=== PATIENT | female | born 1990 | race Caucasian/White ===

== ENCOUNTER → 2024-04-05 11:15 | Outpatient (AMB) | payer OTHER, SELFPAY ==
--- NOTE | 2024-04-05 09:41 | A.OFFPC_ITS ---
Vital Signs 04/05/24 11:38 04/05/24 11:49 Height 5 ft 5.35 in Weight 191 lb BMI 31.4 BP 154/96 H 152/84 H Blood Pressure Location Rt brachial Rt brachial Position Sitting Sitting Pulse 72 Pulse Source Pulse Oximeter Pulse Oximetry (%) 98 Oxygen Delivery Method Room Air Intake Visit Reasons: TC from [facility] Intake Note: New patient visit Executive Staff Assistant Required: No Allergies No Known Allergies Allergy (Verified 04/05/24 11:35) Tobacco use date assessed: 04/05/24 Dental Screening Dental Screen Date: 04/05/24 Did you have a dental visit in the last 12 months?: No Did you have a dental problem in the last 6 months where you did not have access to dental care?: No Was dental information given to patient?: Patient has dentist HPI HPI Comments History of Present Illness Details The patient is a 33 year old female with a past medical history of anxiety, depression, seizures, asthma presenting for physical exam Was referred to at last visit in July. Was feeling depressed, manic at the time. Doing better but still high levels of anxiety. BP is high today. Has done well with lexapro in the past but after a few months doesnt seem to work as well. would like to try again Migraines have increased in frequency and severity. Often waking up with them. She is snoring She has been having almost daily GERD for the past month. Has been taking TUMs with little relief Asthma: on albuterol as needed. ROS see HPI PHYSICAL EXAM: GENERAL: Alert and oriented x 3. NAD EYES: EOMI. Anicteric. HENT: Moist mucous membranes. No scleral icterus. No cervical lymphadenopathy. LUNGS: Clear to auscultation bilaterally. CARDIOVASCULAR: Regular rate and rhythm. No murmur. No JVD. ABDOMEN: Soft, non-tender +bs EXTREMITIES: No edema. Non-tender. SKIN: No rashes or lesions. Warm. NEUROLOGIC: No focal neurological deficits. CN II-XII grossly intact PSYCHIATRIC: Cooperative. Appropriate mood and affect PENDING SALE TO [facility] Family History (Updated 04/05/24 @ 11:42 by Ludmila Steele CMA) Mother Heart murmur after rheumatic heart disease HTN (hypertension) Father Anxiety Depression HTN (hypertension) Other FH: mental illness PTSD (post-traumatic stress disorder) Social History Housing: House Patient Tobacco Use Status: Former Tobacco user Cigarette Packs Per Day: 1 Years Smoked: 10 e-Cigarette/Vaping Use: Currently Using service: No Current occupational status: employed and unemployed Cognitive needs: No Hearing needs: No Vision needs: No Questionnaire AUDIT C Alcohol Use Questionnaire (AUDIT-C) 1. How often do you have a drink containing alcohol?: Monthly or less 2. How many drinks containing alcohol do you have on a typical day when you are drinking?: 1 or 2 3. How often do you have six or more drinks on one occasion?: Never Total Score: 1 Physical exam (Primary Care) Vital Signs: Last Vital Signs Pulse 72 04/05/24 11:38 BP 154/96 H 04/05/24 11:38 Pulse Ox 98 04/05/24 11:38 Oxygen Delivery Method Room Air 04/05/24 11:38 BMI result Body Mass Index 31.4 Coding Level of Care Code Est Pt Level 4 (04624) Diagnoses Snoring R06.83 Migraine without status migrainosus, not intractable, unspecified migraine type G43.909 Migraine type: unspecified Status migrainosus presence: without status migrainosus Intractability: not intractable Anxiety F41.9 Assessment & Plan Assessment & Plan (1) Snoring: Code(s): R06.83 - Snoring Category: Medical Plan: AM headaches, snoring, apnea-sleep testing ordered (2) Migraines: Code(s): G43.909 - Migraine, unspecified, not intractable, without status migrainosus Category: Medical Qualifiers: Migraine type: unspecified Status migrainosus presence: without status migrainosus Intractability: not intractable Qualified Code(s): G43.909 - Migraine, unspecified, not intractable, without status migrainosus Plan: trial imitrex. sleep testing ordered (3) Anxiety: Code(s): F41.9 - Anxiety disorder, unspecified Category: Medical Plan: Restart lexapro. follow up 5-6 weeks Orders: Orders RT home sleep study Today R06.81 - Apnea, not elsewhere classified, R06.83 - Snoring Medications: New sumatriptan succinate (Imitrex) take 1 tab at onset of headache; if no relief may repeat 1 tab after at least 2 hrs; max = 4 tabs/24 hr PO 30 tabs 0RF escitalopram oxalate Take 1/2 tab oral once daily for 2 weeks then increase to one tablet oral once daily 20 mg PO DAILY 90 tabs 3RF pantoprazole 20 mg PO DAILY 90 tabs 3RF
[2024-04-05 11:38] VITALS: BP 154/96; PULSE 72; O2SAT 98; BMI 31.4
[2024-04-05 11:49] VITALS: BP 152/84
== END ==
PROVIDERS: PCP Internal Medicine; Visit Provider Internal Medicine
DX: R06.83 Snoring (principal); G43.909 Migraine, unspecified, not intractable, without status migrainosus; F41.9 Anxiety disorder, unspecified

== ENCOUNTER 2024-07-08 16:15 | Outpatient (AMB) | payer OTHER, SELFPAY ==
--- NOTE | 2024-07-08 16:07 | MHC.PC.OV ---
Intake Visit Reasons: follow up meds Intake Note: Follow up medication. Production Designer Required: No Allergies No Known Allergies Allergy (Verified 07/08/24 16:07) Tobacco use date assessed: 07/08/24 Dental Screening Dental Screen Date: 04/05/24 HPI HPI Comments History of Present Illness Details The patient is a 33 year old female with a past medical history of anxiety, depression, seizures, asthma presenting for follow up Anxiety: Is doing much better back on lexapro. She would like to slightly increase the dose. She also infrequently has overwhelming anxiety. Was referred to at last visit in July. Was feeling depressed, manic at the time. Doing better but still high levels of anxiety. BP is high today. Has done well with lexapro in the past but after a few months doesnt seem to work as well. would like to try again Migraines have lessened since starting back on ssri She has been having almost daily GERD for the past month. Has been taking TUMs with little relief Asthma: on albuterol as needed. ROS see HPI PHYSICAL EXAM: Telehealth [facility] Family History Mother Heart murmur after rheumatic heart disease HTN (hypertension) Father Anxiety Depression HTN (hypertension) Other FH: mental illness PTSD (post-traumatic stress disorder) Social History Housing: House Alcohol intake: current Patient Tobacco Use Status: Current everyday Tobacco user Cigarette Packs Per Day: 0.5 Years Smoked: 10 e-Cigarette/Vaping Use: Currently Using Substance Use Type: Marijuana service: No Current occupational status: employed and unemployed Cognitive needs: No Hearing needs: No Vision needs: No Physical exam (Primary Care) Tobacco/Smoking Status: Tobacco use Status Tobacco use date assessed 07/08/24 07/08/24 16:10 Patient Tobacco Use Status Current everyday Tobacco 07/08/24 16:10 e-Cigarette/Vaping Use Currently Using 07/08/24 16:10 Coding Level of Care Code Est Pt Level 4 (47339) Diagnoses Anxiety F41.9 Assessment & Plan Assessment & Plan (1) Anxiety: Code(s): F41.9 - Anxiety disorder, unspecified Category: Medical Plan: Increase lexapro to 30mg daily Start sparing lorazepam prn Medications: New escitalopram oxalate 30 mg (1.5 x 20 mg) PO DAILY 135 tabs 3RF lorazepam 1 mg PO BID PRN 30 tabs 2RF anxiety
== END 2024-07-08 17:05 ==
LOC: HO.HMCFM 16:15
PROVIDERS: PCP Internal Medicine; Visit Provider Internal Medicine
DX: F41.9 Anxiety disorder, unspecified (principal)

== ENCOUNTER 2025-01-23 09:13 | Outpatient (AMB) | payer OTHER, SELFPAY ==
[2025-01-23 09:20] VITALS: BP 134/86; PULSE 87; RESP 14; TEMP 36.9; O2SAT 98; BMI 33.5
--- NOTE | 2025-01-23 09:20 | A.OFFPC_ITS ---
Vital Signs 01/23/25 09:20 Height 5 ft 5.35 in Weight 203 lb 6 oz BMI 33.5 BP 134/86 Blood Pressure Location Rt brachial Position Sitting Respiration 14 Pulse 87 Pulse Source Pulse Oximeter Temp 98.4 F Temp Source Oral Pulse Oximetry (%) 98 Oxygen Delivery Method Room Air Intake Visit Reasons: CPE Intake Note: Physical Allergies No Known Allergies Allergy (Verified 01/23/25 09:23) Tobacco use date assessed: 01/23/25 Dental Screening Dental Screen Date: 01/23/25 Did you have a dental visit in the last 12 months?: No Did you have a dental problem in the last 6 months where you did not have access to dental care?: No Was dental information given to patient?: Patient has dentist HPI HPI Comments History of Present Illness Details The patient is a 34 year old female with a past medical history of anxiety, depression, seizures, asthma presenting for follow up Anxiety: stable on lexapro, still with some breakthrough anxiety. Lorazepam too sedating Was referred to at last visit in July. Was feeling depressed, manic at the time. Doing better but still high levels of anxiety. BP is high today. Has done well with lexapro in the past but after a few months doesnt seem to work as well. would like to try again Migraines have lessened since starting back on SSRI. She has had dental issues since childhood. She has had recurring right low deann. She needs a new OMF referral. Patient notes that she has had recurrent palpitations, lightheadedness. She notes intermittent bradycardia. Tells me she has been on a heart monitor in the past. GERD: stable on PPI Asthma: on albuterol as needed. Left wrist pain, bump on the wrist. worsening over time. No redness or warmth. 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 NAD EYES: EOMI. Anicteric. HENT: Moist mucous membranes. No scleral icterus. No cervical lymphadenopathy. LUNGS: Clear to auscultation bilaterally. CARDIOVASCULAR: Regular rate and rhythm. No murmur. No JVD. ABDOMEN: Soft, non-tender +bs EXTREMITIES: No edema. Non-tender. SKIN: No rashes or lesions. Warm. NEUROLOGIC: No focal neurological deficits. CN II-XII grossly intact PSYCHIATRIC: Cooperative. Appropriate mood and affect PFSH Family History Mother Heart murmur after rheumatic heart disease HTN (hypertension) Father Anxiety Depression HTN (hypertension) Other FH: mental illness PTSD (post-traumatic stress disorder) Social History Housing: House Alcohol intake: current Patient Tobacco Use Status: Current everyday Tobacco user Cigarette Packs Per Day: 0.5 Years Smoked: 10 e-Cigarette/Vaping Use: Currently Using Substance Use Type: Marijuana service: No Current occupational status: unemployed Cognitive needs: No Hearing needs: No Vision needs: No Questionnaire PHQ-9 Over the last 2 weeks, how often have you been bothered by any of the following problems? 1. Little interest or pleasure in doing things: not at all 2. Feeling down, depressed, or hopeless: not at all 3. Trouble falling or staying asleep, or sleeping too much: nearly every day 4. Feeling tired or having little energy: nearly every day 5. Poor appetite or overeating: more than half the days 6. Feeling bad about yourself - or that you are a failure or have let yourself or your family down: not at all 7. Trouble concentrating on things, such as reading the newspaper or watching television: not at all 8. Moving or speaking so slowly that other people could have noticed. Or the opposite - being so fidgety or restless that you have been moving around a lot more than usual: not at all 9. Thoughts that you would be better off or of hurting yourself in some way: not at all Total score: 8 Depression Screening Interpretation: Positive Depression Screening Follow-up: Existing condition Depression Screening Done: Yes 50239 - PHQ-9 Billing: Yes Source: Developed by Drs. Leroy Gonzalez, Jolly Irizarry, Demetri Alvarez and colleagues, with an educational cristopher from [employer]. Thrive Questionnaire Date Thrive assessed: 01/23/25 I am a: Patient What is your living situation today?: I have a steady place to live Within the past 12 months, did the food you bought not last and you didn't have the money to get more?: Never true Within the past 12 months, did you worry whether your food would run out before you got money to buy more?: Never true Do you have trouble paying for medicines?: No Do you have trouble getting transportation to medical appointments?: No Do you have trouble paying your heating and electricity bill?: No Do you have trouble taking care of your child, family member or friend?: No Do you have trouble with day-to-day activities such as bathing, preparing meals, shopping, managing finances, etc.?: No Are you currently unemployed and looking for a job?: No Are you interested in more education?: No Please select the resources that you would like help with: None Currently or been in a relationship where the following occur: I choose not to answer THRIVE Score: 0 AUDIT C Alcohol Use Questionnaire (AUDIT-C) 1. How often do you have a drink containing alcohol?: Monthly or less 2. How many drinks containing alcohol do you have on a typical day when you are drinking?: 1 or 2 3. How often do you have six or more drinks on one occasion?: Never Total Score: 1 RYAN-7 AMB Questionnaire RYAN-7 Date RYAN - 7 assessed: 01/23/25 Feeling nervous, anxious, or on edge: 3 = Nearly every day Not being able to stop or control worryin = Nearly every day Worrying too much about different things: 3 = Nearly every day Trouble relaxin = Several days Being so restless that it is hard to sit still: 1 = Several days Becoming easily annoyed or irritable: 3 = Nearly every day Feeling afraid as if something awful might happen: 1 = Several days Total RYAN-7 score (0-4 normal; 5-9 mild; 10-14 moderate; 15-21 severe): 15 Source: Developed by Drs. Leroy Gonzalez, Jolly Irizarry, Demetri Alvarez and colleagues, with an educational cristopher from [employer]. RYAN-7 Assessment Billing RYAN-7 Assessment Tool: RYAN-7 Assessment 30053 Physical exam (Primary Care) Vital Signs: Last Vital Signs Temp 98.4 F 01/23/25 09:20 Pulse 87 01/23/25 09:20 Resp 14 01/23/25 09:20 BP 134/86 01/23/25 09:20 Pulse Ox 98 09/22/25 09:20 Oxygen Delivery Method Room Air 01/23/25 09:20 BMI result Body Mass Index 33.5 Tobacco/Smoking Status: Tobacco use Status Tobacco use date assessed 01/23/25 01/23/25 09:29 Patient Tobacco Use Status Current everyday Tobacco 01/23/25 09:22 e-Cigarette/Vaping Use Currently Using 01/23/25 09:22 PHQ-9: PHQ-9 Score PHQ-9: Total score 8 01/23/25 11:01 Depression Screening Interpretation: Positive Depression Screening Follow-up: Existing condition Thrive Assessment: Date of Thrive Assessment Date Thrive assessed 01/23/25 01/23/25 11:01 Currently or been in a relationship where the following occur: I choose not to answer Coding Level of Care Code Est Pt Prev Care 18-39y(44129) Diagnoses Physical exam Z00.00 Dislocation of temporomandibular joint, subsequent encounter S03.00XD Encounter type: subsequent encounter Bradycardia R00.1 Anxiety F41.9 Additional Codes RYAN-7 Assessment Billing - RYAN-7 Assessment Tool: RYAN-7 Assessment 82331 ([id number]) PHQ-9 - 02567 - PHQ-9 Billing: Yes ([id number]) Assessment & Plan Assessment & Plan (1) Physical exam: Code(s): Z00.00 - Encounter for general adult medical examination without abnormal findings (2) TMJ (dislocation of temporomandibular joint): Code(s): S03.00XA - Dislocation of jaw, unspecified side, initial encounter Category: Medical Qualifiers: Encounter type: subsequent encounter Qualified Code(s): S03.00XD - Dislocation of jaw, unspecified side, subsequent encounter (3) Bradycardia: Code(s): R00.1 - Bradycardia, unspecified Category: Medical (4) Anxiety: Code(s): F41.9 - Anxiety disorder, unspecified Category: Medical Plan 34 year old for CPE Interval history reviewed preventive measures for age discussed declines flu Wrist pain-xr ordered. referral hand Palpitations, bradycardia-referral to cardiology TMJ, lock jaw-referral to OMF placed Labs ordered Orders: Orders Comprehensive Met. Panel Today F41.9 - Anxiety disorder, unspecified, G43.909 - Migraine, unspecified, not intractable, without status migrainosus, R06.81 - Apnea, not elsewhere classified, R06.83 - Snoring XR wrist LT min 3V Today M25.532 - Pain in left wrist Lyme IgG/IgM w/reflex to WB Today R00.1 - Bradycardia, unspecified Complete Blood Count Auto Diff Today F41.9 - Anxiety disorder, unspecified, G43.909 - Migraine, unspecified, not intractable, without status migrainosus, R06.81 - Apnea, not elsewhere classified, R06.83 - Snoring Lipid Panel Today F41.9 - Anxiety disorder, unspecified, G43.909 - Migraine, unspecified, not intractable, without status migrainosus, R06.81 - Apnea, not elsewhere classified, R06.83 - Snoring TSH reflex Free T4 Today F41.9 - Anxiety disorder, unspecified, G43.909 - Migraine, unspecified, not intractable, without status migrainosus, R06.81 - Apnea, not elsewhere classified, R06.83 - Snoring Vitamin B12 and Folate Today F41.9 - Anxiety disorder, unspecified, G43.909 - Migraine, unspecified, not intractable, without status migrainosus, R06.81 - Apnea, not elsewhere classified, R06.83 - Snoring Referrals Cardiology Referral R00.1 - Bradycardia, unspecified, R42 - Dizziness and giddiness Oral Surgery Referal S03.00XA - Dislocation of jaw, unspecified side, initial encounter Hand Surgery Referral M25.532 - Pain in left wrist Medications: New buspirone 10 mg PO TID 90 tabs 3RF
--- OUTSIDE RECORDS SUMMARY | 2025-01-23 10:49 | XMS_ITS ---
Author Name [facility] Organization Unknown Care Team Organization Name Specialty Phone Email Start Date End Da te [facility] Termed, [facility] Primary Care 03/11/202212/02
== END 2025-01-23 09:53 | disposition home or self-care (01) ==
LOC: HO.HMCFM 09:14
PROVIDERS: PCP Internal Medicine; Visit Provider Internal Medicine
DX: Z00.00 Encounter for general adult medical examination without abnormal findings (principal); S03.00XD Dislocation of jaw, unspecified side, subsequent encounter; R00.1 Bradycardia, unspecified; F41.9 Anxiety disorder, unspecified

== ENCOUNTER → 2025-01-23 09:13 | Outpatient (BNVA) | payer OTHER, SELFPAY | PROVIDERS: PCP Internal Medicine; Visit Provider Internal Medicine | DX: Z00.00 Encounter for general adult medical examination without abnormal findings (principal); S03.00XD Dislocation of jaw, unspecified side, subsequent encounter; R00.1 Bradycardia, unspecified; F41.9 Anxiety disorder, unspecified; K21.9 Gastro-esophageal reflux disease without esophagitis; J45.909 Unspecified asthma, uncomplicated; M25.532 Pain in left wrist; G43.909 Migraine, unspecified, not intractable, without status migrainosus; Z79.899 Other long term (current) drug therapy; Z13.31 Encounter for screening for depression; Z13.39 Encounter for screening examination for other mental health and behavioral disorders | CPT/HCPCS: 96127 ==

== ENCOUNTER 2025-01-30 09:13 | Outpatient (REF) | payer OTHER, SELFPAY ==
[2025-01-30 11:25] LABS: MANUAL DIFF FLAG NO
[2025-01-30 11:32] LABS: Hematocrit 38.5 % (37.0-47.0); Hemoglobin 13.4 g/dl (12.0-16.0); Imm Gran Abs Auto 0.03 X10*3/uL (0.00-0.03); Imm Gran Pct Auto 0.4 % (0.0-0.4); Lymphocytes Absolute Auto 1.4 X10*3/uL (1.2-4.9); Mean Corpuscular HGB Conc 34.8 g/dl (31.0-35.0); Mean Corpuscular Hemoglobin 30.8 pg (27.0-33.0); Mean Corpuscular Volume 88.5 fL (80.0-98.0); NRBC Abs Auto 0.000 X10*3/uL (0.0-0.012); NRBC Pct Auto 0.0 /100WBC (0.0-0.2); Platelet Count 283 X10*3/uL (160-400); Red Blood Count 4.35 X10*6/uL (4.20-5.50); White Blood Count 6.8 X10*3/uL (4.8-10.8)
[2025-01-30 12:07] LABS: Alanine Aminotransferase 21 U/L (0-31); Albumin Level 4.4 g/dL (3.5-5.0); Alkaline Phosphatase 72 U/L (39-117); Anion Gap 9 (12-20); Aspartate Amino Transferase 21 U/L (5-31); Blood Urea Nitrogen 10 mg/dL (9-16); Calcium 9.0 mg/dL (8.4-10.2); Carbon Dioxide 24 mmol/L (22-29); Chloride 112 mmol/L (96-108); Cholesterol 190 mg/dL (<200); Estimated Glomerular Filt Rate > 60; HDL Cholesterol 38 mg/dL (>40); Potassium 3.9 mmol/L (3.3-5.1); Sodium 141 mmol/L (135-145); Total Protein 7.0 g/dL (6.5-8.0); Triglycerides 59 mg/dL (<150)
[2025-01-30 12:15] LABS: Folate 4.6 ng/mL (> or = 4.0); Vitamin B12 196 pg/mL (200-900)
[2025-01-31 08:59] LABS: Lyme Abs Screen <0.90 index
== END 2025-01-30 09:14 | disposition home or self-care (01) ==
LOC: HO.WFDLDS 09:13
PROVIDERS: Visit Provider Internal Medicine
DX: R06.83 Snoring (principal); G43.909 Migraine, unspecified, not intractable, without status migrainosus; R00.1 Bradycardia, unspecified; F41.9 Anxiety disorder, unspecified; R06.81 Apnea, not elsewhere classified; Z01.84 Encounter for antibody response examination; Z13.6 Encounter for screening for cardiovascular disorders
CPT/HCPCS: 36415; 80053; 80061; 82607; 82746; 84443; 85025; 86617; 86618

== ENCOUNTER 2025-02-06 08:09 | Outpatient (REF) | payer OTHER, SELFPAY ==
[2025-02-28 23:28] LABS: Estradiol Ultra Sensitive 21 pg/mL
== END 2025-02-06 08:10 | disposition home or self-care (01) ==
LOC: HO.WFDLDS 08:09
PROVIDERS: Visit Provider Internal Medicine
DX: N92.6 Irregular menstruation, unspecified (principal)
CPT/HCPCS: 36415; 82670; 83002; 84403

== ENCOUNTER 2025-02-15 10:26 | Emergency (ER) | payer OTHER, SELFPAY ==
--- OUTSIDE RECORDS SUMMARY | 2025-02-12 18:58 | XMS_ITS | Encounter Summary ---
Author Organization [facility] Address [address] [place] [phone] Phone Care Team Providers Care Equipment Sales Specialist Name Role Phone Belinda Villa MD Primary Care Provider + [phone] Reason for Visit * Reason Comments Chest Pain Encounter Details Date Type Department Care Team (Late st Contact Info) Description 02/12/2025 6:58 PM EDT - 02/12/2025 9:10 PM EDT Emergency [facility] [address] [place] [address] Discharge Disposition: Home or Self Care Social History Tobacco Use Types Packs/Day Years Used Date Smoking Tobacco: Every Day Cigarettes Passive Smoke Exposure: Never Alcohol Use Standard Drinks/Week Comments Never 0 (1 standard drink = 0.6 oz pur e alcohol) Education Answer Date Recorded Are you interested in more education? Not on tj e 02/12/2025 Are you concerned about learning? Not on file 02/12/2025 No 02/12/2025 No 02/12/2025 Digital Access Answer Date Recorded No 02/12/2025 No 02/12/2025 Reliable internet access at home? Not on file 02/12/2025 Device with a working camera? Not on file Intimate Partner Violence Answer Date R ecorded Are you denied basic needs s uch as food, clothing, or medical care? No 02/12/2025 In the past 12 months have y ou been in a relationship with a person who hurts, threatens, or tries to control you? No 02/12/2025 Are you denied basic needs s uch as food, clothing, or medical care? No 02/12/2025 In the past 12 months have y ou been in a relationship with a person who hurts, threatens, or tries to control you? No 02/12/2025 Comments No Sex and Gender Information Value Date Recorded Sex Assigned at Not on file Legal Sex Female 6:19 PM EDT Gender Identity Not on file Sexual Orientation Not on file documented as of this encounter Last Filed Vital Signs Vital Sign Reading Time Taken Comments Blood Pressure 134/82 02/12/2025 9:00 PM EDT Pulse 59 02/12/2025 9:00 PM EDT Temperature 37.3 C (99.1 F) 02/12/2025 9:00 PM EDT Respiratory Rate 18 02/12/2025 9:00 PM EDT Oxygen Saturation 99% 02/12/2025 9:00 PM EDT Inhaled Oxygen Concentration - - Weight 83 kg (183 lb) 02/12/2025 6:24 PM EDT Height 160 cm (5' 3 ) 02/12/2025 6:24 PM EDT Body Mass Index 32.42 02/12/2025 6:24 PM EDT documented in this encounter Functional Status * Calculated C-SSRS Risk Score (Lifetime/Recent) Answer Date of Assessment Author No Risk Indicated 02/12/2025 6:27 PM EDT Jennifer Roberson RN * [place] Suicide Severity Rating Scale (Screener/Recent Self-Report) Question Answer Date of Assessment Author 1. Wish to be (Past 1 Month) No 02/12/2025 6:27 PM EDT Jerri Saul RN 2. Non-Specific Active Suicidal Thoughts (Past 1 Month) No 02/12/2025 6:27 PM EDT Jerri Saul RN 6. Suicidal Behavior (Lifetime) No 02/12/2025 6:27 PM EDT Jerri Saul RN documented as of this encounter Discharge Instructions * Discharge Instructions* Alem Wong PA-C - 02/12/2025 9:00 PM EDT Your laboratory results today were all reassuring without signs of infection or metabolic derangement. Your troponin, an enzyme that evaluates heart function was within normal limits. Your EKG and chest x-ray showed no acute abnormalities. You were given referral to complete ultrasound of the rightupper quadrant/gallbladder. It is scheduled for 11 AM on 02/13/2025. Please, arrive 15 minutes prior to your appointment to the main entrance of [facility] and you will be referred to the ultrasound suite. Will notify you and your primary care doctor about the results. Follow-up with your primary care doctor for observation and further management. Return to the emergency department for any new or concerning symptoms * Attachments The following attachments cannot be sent through Care Everywhere. * Chest Pain (Setswana) documented in this encounter Procedure Notes * Alem Wong PA-C - 02/12/2025 8:23 PM EDTAssociated Order(s): Bedside Ultrasound Procedure Bedside Ultrasound Date/Time: 02/12/2025 8:24 PM Performed by: Alem Wong PA-C Authorized by: Alem Wong PA-C Exam Type: Biliary Biliary Exam Findings & Impression: Indications: patient with epigastric pain Gallstones: the gallbladder could not be well visualized and therefore the presence of gallstones could not be determined Gallbladder Wall Thickening: the gallbladder wall thickness could not be well visualized and therefore the thickness could not be assessed Pericholecystic Fluid Present: the gallbladder could not be visualized and therefore the presence of pericholecystic fluid could not be determined Sonographic Rao: the gallbladder could not be well visualized and therefore the presence or absence of a Sonographic Rao's sign could not be determined Overal Impression: indeterminate Images: Images Saved: Yes Accession Number: [id number] Cosigned by Ulises Martin DO at 02/13/2025 3:53 AM EDT Associated attestation - Ulises Martin DO - 02/13/2025 3:53 AM EDT Ulises Gallegos DO, the Attending Physician was available and supervising the care of this patient. documented in this encounter ED Notes * Varghese De Leon RN - 02/12/2025 9:09 PM EDT ED Nursing Progress Note Pt medically cleared and prepared for discharge after evaluation and treatment by ED provider. Patient has been provided with paper instructions in addition to verbal discharge instructions, pt verbalized understanding. Patient has been educated on home management, follow up, and when to return to the ED. Pt A&O x4, ambulatory with a steady gait. Pt denies any new or worsening medical complain ts. Pt has safe ride home. All belongings with patient, all safety maintained. Patient is in no acute distress at time of discharge. * Varghese De Leon RN - 02/12/2025 7:36 PM EDT ED Nursing Progress Note Pt to ED for eval of substernal chest pain beginning at 1600. Pt reports driving and CP came on suddenly and radiated down left arm. Pt reports dizziness room is spinning and SOB worse with ambulation. 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 Pt alert and calm, CAOx4,skin PWD, speaking in full sentences answering questions appropriately, respirations even and unlabored, managing airway/secretions. * Jennifer Saul RN - 02/12/2025 6:22 PM EDT Patient BIBA from the side of the road after experiencing sudden onset of substernal chest pain. She was driving when she felt sharp chest pain that radiated her left arm. Dry cough noted during triage. Patient also reporting feeling short of breath. She has an appointment with cardiology in March for ongoing chest pain and bradycardia. Patient received 324 of ASA en route. Patient reports some improvement of chest pain. EKG done in triage. * Alem Wong PA-C - 02/12/2025 6:19 PM EDT Chief Complaint Chief Complaint Patient presents with Chest Pain History of Present Illness The patient, Sindhu Leung,is a 34 y.o. female who presents for evaluation of Chest Pain History of Present Illness This is a 34-year-old female with a history of bradycardia presenting with chest pain, dizziness, and nausea. The patient reports experiencing significant chest pain, described as a squeezing sensation, which began a few days ago. The pain intensifies with inhalation and slightly eases when pressure is applied to the chest. She also mentions difficulty in taking full breaths. She has been feeling dizzy forthe past few days, with the chest pain exacerbating this symptom. The dizziness is described as a spinning sensation rather than tunnel vision. Prior to [place] a mall where she felt extremely dizzy and hot, accompanied by severe chest pain that worsened with each breath. The pain was somewhat alleviated by applying pressure to her chest, but it continued to intensify. She experienced significa nt nausea during this episode. She reports that episodes started after she ate a meal. She rates her current pain level as 2 out of 10, describing it as more of a discomfort than actual pain. She hasno history of abdominal surgeries. She has an upcoming appointment with her primary care physician in 03/2025 for a heart monitor. Sheexpresses concern about the possibility of a heart attack tonight. She describes a fluttering sensation in her chest and a perceived drop in her heart rate. A previous hospital visit revealed bradycardia on the monitor. Unless otherwise specified, I have reviewed and agree with the triage and nursing notes. ROS A ten point review of systems was negative except what was noted in the HPI. Review of Systems Past Medical History Past Medical History: Diagnosis Date Migraine Past Surgical History No past surgical history on file. Home Medications Prior to Admission medications Not on File Allergies No Known Allergies Social and Family History Social History Tobacco Use Smoking status: Every Day Current packs/day: 0.25 Types: Cigarettes Passive exposure: Never Smokeless tobacco: Not on file Substance Use Topics Alcohol use: Never Social History Substance and Sexual Activity Drug Use Yes Types: Marijuana No family history on file. Physical Exam Vital Signs: ED Triage Vitals [02/12/25 9464] Encounter Vitals Group BP (!) 142/80 Systolic BP Percentile Diastolic BP Percentile Heart Rate 76 Respiratory Rate 18 Temperature 37.8 ??C (100 ??F) Temp Source Temporal SpO2 99 % Weight 183 lb Height 5' 3 Head Circumference Peak Flow Pain Score Pain Loc Pain Education Exclude from Growth Chart Physical Exam GENERAL APPEARANCE: AxOx3, appears generally well, not ill or toxic appearing, no acute distress. HEENT: Head is normocephalic and atraumatic, mucous membranes are moist without lesions NECK: Supple without lymphadenopathy. No stiffness or restricted ROM. CARDIOVASCULAR: Normal rate and regular rhythm, normal S1/S2, no murmurs, rubs or gallops PULMONARY: Lung sounds are clear to auscultation bilaterally, moving air well. ABDOMEN: Soft, nondistended with good bowel sounds heard. Mild tenderness to palpation over the right upper quadrant and epigastric area. No rebound or guarding. No peritoneal signs. Negative Rao sign. No CVA tenderness MUSCULOSKELETAL: normal ROM of all major extremities; no obvious deformities or signs of injury. Lower extremities without cyanosis, clubbing or edema. NEUROLOGICAL: No focal deficits; CN 2-12 not formally tested but appear grossly intact. Observed toambulate with normal gait. SKIN: Warm and dry without any rash. Laboratory Testing Results for orders placed or performed during the hospital encounter of 02/12/25 LFTs (hepatic panel) Result Value Ref Range ALKALINE PHOSPHATASE 83 39 - 117 U/L TOTAL BILIRUBIN 0.8 0.0 - 1.2 mg/dL DIRECT BILIRUBIN 0.2 0.0 - 0.2 mg/dL Bilirubin (Indirect) 0.6 0 - 1.5 mg/dL AST 13 0 - 37 U/L ALT 17 0 - 40 U/L TOTAL PROTEIN 7.1 6.5 - 8.0 g/dL ALBUMIN 4.3 3.9 - 4.8 g/dL GLOBULIN 2.8 1 - 4.8 g/dL A/G Ratio 1.54 1.00 - 4.80 RATIO Lipase Result Value Ref Range LIPASE 44 16 - 63 U/L Troponin Specimen: Blood Result Value Ref Range Troponin-T, HS Gen5 <6 0 - 9 ng/L Troponin Specimen: Blood Result Value Ref Range Troponin-T, HS Gen5 <6 0 - 9 ng/L Basic metabolic panel Specimen: Blood Result Value Ref Range SODIUM 141 133 - 146 mmol/L CHLORIDE 107 96 - 108 mmol/L POTASSIUM 3.4 3.3 - 5.1 mmol/L CO2 23 21 - 35 mmol/L BUN 10 6 - 19 mg/dL CREATININE 0.70 0.5 - 1.5 mg/dL GLUCOSE 78 70 - 99 mg/dL CALCIUM 9.4 8.4 - 10.3 mg/dL EGFR 118 >59 mL/min/1.73m2 ANION GAP 14 10 - 20 mmol/L CBC and differential Specimen: Blood Result Value Ref Range WBC 8.74 4.00 - 11.00 K/uL RBC 4.24 4.00 - 5.20 M/uL HGB 13.0 12.0 - 16.0 g/dL HCT 37.3 36.0 - 46.0 % PLT 267 150 - 450 K/uL MCV 88.0 80.0 - 100.0 fL MCH 30.7 27.0 - 31.0 pg MCHC 34.9 32.0 - 36.0 g/dL RDW 12.7 11.5 - 14.5 % MPV 9.0 8.4 - 12.0 fL NRBC 0.00 0.00 /100 WBCs ABSOLUTE NRBC 0.00 0.00 K/uL DIFF METHOD Auto NEUTS 69.1 48.0 - 76.0 % LYMPHS 24.5 18.0 - 41.0 % MONOS 4.6 4.0 - 11.0 % EOS 1.0 0.0 - 5.0 % BASOS 0.6 0.0 - 1.5 % Granulocytes, immature (%) 0.2 0.0 - 0.9 % ABSOLUTE NEUTS 6.04 1.92 - 7.60 K/uL ABSOLUTE LYMPHS 2.14 0.72 - 4.10 K/uL ABSOLUTE MONOS 0.40 0.16 - 1.10 K/uL ABSOLUTE EOS 0.09 0.00 - 0.50 K/uL ABSOLUTE BASOS 0.05 0.00 - 0.15 K/uL Granulocytes, immature 0.02 0.00 - 0.09 K/uL COVID Pandemic Respiratory Viral Order (PRO) Specimen: Nasopharyngeal swab; Other Result Value Ref Range Test Ordered Rapid COVID has been ordered Specimen Source/Description NASAL SARS-CoV 2 (COVID-19) PCR Not Detected Not Detected Radiology Testing XR Chest Final Result No acute abnormality. ATTESTATION: I, Marci Powell as teaching physician, have reviewed the images for this case and if necessary edited the report originally created by Gregoria Arango MD. Bedside Ultrasound (Results Pending) US Abdomen Limited (Results Pending) [facility] Attestation: Alem Gallegos PA-C, have seen this patient independently. This is a PA only visit Category 1: Tests, Studies or Independent Historians: Independent Historian: Independent history was obtained by spouse/partner. Partner present at bedside. Prior Data Reviewed: Prior notes reviewed. Category 2 and 3: Independent Interpretation of Tests, Consideration of Tests, or External Discussion of Results: Labs: Laboratory studies were interpreted. Radiology: Radiology studies were independently interpreted. Chest x-ray showed no acute abnormality. Bedside Ultrasound: Bedside ultrasound was performed. ECG: EKG studies were independently interpreted. Rate: 67 Rhythm: sinus rhythm Other: Marked sinus arrhythmia T Wave Inversions: No ST Depressions: No ST Elevations: No Risks of Complications, Morbidity, or Mortality: Risks: Necessity for prescription medication was discussed. 34 yo female who presents to the ED with complain of chest pain. HPI and physical exam as above. Upon presentation patient is hemodynamically stable, alert and oriented X3, afebrile, vital signs are reassuring, not ill or toxic appearing, no acute distress. ECG: No overt evidence of STEMI. No evidence of Brugada???s sign, delta wave, epsilon wave, significantly prolonged QTc, or malignant arrhythmia Troponin: Negative x2 Other Labs unremarkable for emergent problems. CXR: Without PTX, PNA, or widened mediastinum HEART Score: low risk PERC negative Bedside ultrasound was performed to assess for biliary colic as patient had tenderness to palpationover right upper quadrant and epigastric area. Gallbladder was poorly visualized. Will provide referral for outpatient ultrasound for further evaluation. Given History, Exam, and Workup I have low suspicion for ACS, pericarditis/myocarditis, Pneumothorax, Pneumonia, Pulmonary Embolus, Tamponade, Aortic Dissection or other emergent problem as a cause for this presentation. Results of evaluation were discussed with the patient; Patient was reassessed on multiple occasionsby myself and nursing staff. Patient reported improvement of symptoms and feels well in general. Advised tylenol and ibuprofen for pain, rest, and hydration. Follow up with PCP for further evaluationand management. Discussed with the patient when to seek immediate medical attention or return to the ED for re-evaluation. Patient expressed understanding and agreed to treatment plan. Attending physician was available for consult at the time of this visit. Portions of this note were dictated utilizing the speech recognition software. Please contact me with any questions. Clinical Impressions as of 02/13/25334 Chest pain, unspecified type Epigastric pain Clinical Impression Diagnosis Description Comment Final diagnoses Chest pain, unspecified type Chest pain, unspecified type -- Epigastric pain Epigastric pain -- Disposition: Home Alem Wong PA-C 02/13/25334 documented in this encounter Plan of Treatment Scheduled Orders Name Type Priority Associated Diagnoses Orde r Schedule Lab Add On: LFT; lipase Lab STAT O nce for 1 Occurrences starting 02/12/2025 until 02/12/2025 documented as of this encounter Procedures Procedure Name Priority Date/Time Associated Diagnosis Comments US BEDSIDE Routine 02/12/2025 8:24 PM EDT TROPONIN STAT 02/12/2025 7:35 PM EDT XR CHEST PA AND LATERAL 2 VIEWS STAT 02/12/2025 7:06 PM EDT LFTS (HEPATIC PANEL) Routine 02/12/2025 6:36 PM EDT CBC AND DIFFERENTIAL STAT 02/12/2025 6:36 PM EDT TROPONIN STAT 02/12/2025 6:36 PM EDT LIPASE Routine 02/12/2025 6:36 PM EDT BASIC METABOLIC PANEL STAT 02/12/2025 6:36 PM EDT COVID PANDEMIC RESPIRATORY VIRAL ORDER (PRO) STAT 02/12/2025 6:32 PM EDT ECG 12-LEAD STAT 02/12/2025 6:27 PM EDT documented in this encounter Results * US ABDOMEN LIMITED RIGHT UPPER QUADRANT (02/13/2025 11:20 AM EDT) Anatomical Region Laterality Modality Abdomen Ultrasound 02/13/2025 5:37 PM EDT Impressions 02/13/2025 5:43 PM EDT 1. Normal appearing gallbladder without cholelithiasis nor evidence for acute cholecystitis. 2. Mildly echogenic liver which is nonspecific but can be seen in hepatic steatosis. 3. Common bile duct at 6 mm, borderline enlarged for age. Of note, LFTs from one day prior within normal limits without evidence for obstructive physiology. Narrative 02/13/2025 5:43 PM EDT US ABDOMEN LIMITED RIGHT UPPER QUADRANT Referring clinician's provided indication for this examination in Epic: Cholecystitis; Pain TECHNIQUE: US Abdominal limited right upper quadrant. COMPARISON: None. FINDINGS: Liver: Mildly echogenic when compared to the adjacent right kidney. No focal liver lesions are seen. Main Portal Vein: Patent with normal direction of flow. Gallbladder: No gallstones or gallbladder wall thickening. Rao's Sign: Negative. Biliary: Normal. No intrahepatic or extrahepatic biliary ductal dilatation. The common bile duct measures 6 mm, borderline enlarged for age. The visualized mid pancreas is unremarkable. The pancreatic head and tail are not seen due to overlying bowel gas. Procedure Note Yash Brown MD - 02/13/2025 US ABDOMEN LIMITED RIGHT UPPER QUADRANT Referring clinician's provided indication for this examination in Epic:Cholecystitis; Pain TECHNIQUE: US Abdominal limited right upper quadrant. COMPARISON: None. FINDINGS: Liver: Mildly echogenic when compared to the adjacent right kidney. Nofocal liver lesions are seen. Main Portal Vein: Patent with normal direction of flow. Gallbladder: No gallstones or gallbladder wall thickening. Rao's Sign: Negative. Biliary: Normal. No intrahepatic or extrahepatic biliary ductaldilatation. The common bile duct measures 6 mm, borderline enlarged forage. The visualized mid pancreas is unremarkable. The pancreatic head and tailare not seen due to overlying bowel gas. IMPRESSION: 1. Normal appearing gallbladder without cholelithiasis nor evidence foracute cholecystitis. 2. Mildly echogenic liver which is nonspecific but can be seen in hepaticsteatosis. 3. Common bile duct at 6 mm, borderline enlarged for age. Of note, LFTsfrom one day prior within normal limits without evidence for obstructivephysiology. Alem Wong PA-C IMG US ABDOMEN Final Resul t * US BEDSIDE (02/12/2025 8:24 PM EDT) Anatomical Region Laterality Modality Ultrasound Narrative 02/12/2025 8:24 PM EDT Ulises Martin DO 02/13/2025 3:53 AM Bedside Ultrasound Date/Time: 02/12/2025 8:24 PM Performed by: Alem Wong PA-C Authorized by: Alem Wong PA-C Exam Type: Biliary Biliary Exam Findings & Impression: Indications: patient with epigastric pain Gallstones: the gallbladder could not be well visualized and therefore the presence of gallstones could not be determined Gallbladder Wall Thickening: the gallbladder wall thickness could not be well visualized and therefore the thickness could not be assessed Pericholecystic Fluid Present: the gallbladder could not be visualized and therefore the presence of pericholecystic fluid could not be determined Sonographic Rao: the gallbladder could not be well visualized and therefore the presence or absence of a Sonographic Rao's sign could not be determined Overal Impression: indeterminate Images: Images Saved: Yes Accession Number: [id number] Alem Wong PA-C IMG POINT OF CARE EXAMS Fin al Result * Troponin (02/12/2025 7:35 PM EDT) Troponin-T, HS Gen5 <6 0 - 9 ng/L [facility] Blood 02/12/2025 7:35 PM EDT 02/12/2025 7:39 PM EDT Prabhu Soria MD LAB BLOOD ORDERABLES Fin al Result [address] [address] * XR CHEST PA AND LATERAL 2 VIEWS (02/12/2025 7:06 PM EDT) Anatomical Region Laterality Modality Chest Computed Radiogr aphy 02/12/2025 7:08 PM EDT Impressions 02/12/2025 7:12 PM EDT No acute abnormality. ATTESTATION: Marci Gallegos as teaching physician, have reviewed the images for this case and if necessary edited the report originally created by Gregoria Arango MD. Narrative 02/12/2025 7:12 PM EDT XR CHEST PA AND LATERAL 2 VIEWS Referring clinician's provided indication for this examination in [facility]: Dyspnea (Shortness of Breath) COMPARISON: None. FINDINGS: Devices/Tubes/Lines: None. Lungs: No focal consolidation or pulmonary edema. Pleura: No pleural effusion or pneumothorax. Heart/Mediastinum: Cardiac and mediastinal silhouettes are within normal limits. Bones/Soft Tissues: No acute osseous abnormality. Procedure Note Marci Powell MBBS - 02/12/2025 XR CHEST PA AND LATERAL 2 VIEWS Referring clinician's provided indication for this examination in [facility]:Dyspnea (Shortness of Breath) COMPARISON: None. FINDINGS: Devices/Tubes/Lines: None. Lungs: No focal consolidation or pulmonary edema. Pleura: No pleural effusion or pneumothorax. Heart/Mediastinum: Cardiac and mediastinal silhouettes are within normallimits. Bones/Soft Tissues: No acute osseous abnormality. IMPRESSION: No acute abnormality. ATTESTATION: Marci Gallegos as teaching physician, have reviewedthe images for this case and if necessary edited the report originallycreated by Gregoria Arango MD. us Prabhu Soria MD IMG XR CHEST Final Re sult * LFTs (hepatic panel) (02/12/2025 6:36 PM EDT) ALKALINE PHOSPHATASE 83 39 - 117 U/L [facility] TOTAL BILIRUBIN 0.8 0.0 - 1.2 mg/dL [facility] DIRECT BILIRUBIN 0.2 0.0 - 0.2 mg/dL [facility] Bilirubin (Indirect) 0.6 0 - 1.5 mg/dL [facility] AST 13 0 - 37 U/L [facility] ALT 17 0 - 40 U/L [facility] TOTAL PROTEIN 7.1 6.5 - 8.0 g/dL [facility] ALBUMIN 4.3 3.9 - 4.8 g/dL [facility] GLOBULIN 2.8 1 - 4.8 g/dL [facility] A/G Ratio 1.54 1.00 - 4.80 RATIO [facility] 02/12/2025 6:36 PM EDT 02/12/2025 6:40 PM EDT us Prabhu Soria MD LAB BLOOD ORDERABLES Fin al Result Performing Organization Address [facility] Co de Phone Number [address] [address] * Lipase (02/12/2025 6:36 PM EDT) LIPASE 44 16 - 63 U/L [facility] 02/12/2025 6:36 PM EDT 02/12/2025 6:40 PM EDT Prabhu Soria MD LAB BLOOD ORDERABLES Fin al Result Performing Organization Address [facility] de Phone Number [address] [address] * Troponin (02/12/2025 6:36 PM EDT) Troponin-T, HS Gen5 <6 0 - 9 ng/L [facility] Blood 02/12/2025 6:36 PM EDT 02/12/2025 6:40 PM EDT us Prabhu Soria MD LAB BLOOD ORDERABLES Fin al Result Performing Organization Address [facility] Co de Phone Number [address] [address] * Basic metabolic panel (02/12/2025 6:36 PM EDT) SODIUM 141 133 - 146 mmol/L [facility] CHLORIDE 107 96 - 108 mmol/L [facility] POTASSIUM 3.4 3.3 - 5.1 mmol/L [facility] CO2 23 21 - 35 mmol/L [facility] BUN 10 6 - 19 mg/dL [facility] CREATININE 0.70 0.5 - 1.5 mg/dL [facility] GLUCOSE 78 70 - 99 mg/dL [facility] CALCIUM 9.4 8.4 - 10.3 mg/dL [facility] EGFR 118 >59 mL/min/1.7 3m2 [facility] Comment:Estimated glomerular filtration rate calculated using the CKD-EPI refit equation. ANION GAP 14 10 - 20 mmol/L [facility] Blood 02/12/2025 6:36 PM EDT 02/12/2025 6:40 PM EDT us Prabhu Soria MD LAB BLOOD ORDERABLES Fin al Result [address] [address] * CBC and differential (02/12/2025 6:36 PM EDT) WBC 8.74 4.00 - 11.00 K/uL [facility] RBC 4.24 4.00 - 5.20 M/uL [facility] HGB 13.0 12.0 - 16.0 g/dL [facility] HCT 37.3 36.0 - 46.0 % [facility] PLT 267 150 - 450 K/uL [facility] MCV 88.0 80.0 - 100.0 [facility] MCH 30.7 27.0 - 31.0 pg [facility] MCHC 34.9 32.0 - 36.0 g/dL [facility] RDW 12.7 11.5 - 14.5 % [facility] MPV 9.0 8.4 - 12.0 [facility] NRBC 0.00 0.00 /100 WBCs [facility] ABSOLUTE NRBC 0.00 0.00 K/uL [facility] DIFF METHOD Auto [facility] NEUTS 69.1 48.0 - 76.0 % [facility] LYMPHS 24.5 18.0 - 41.0 % [facility] MONOS 4.6 4.0 - 11.0 % [facility] EOS 1.0 0.0 - 5.0 % [facility] BASOS 0.6 0.0 - 1.5 % [facility] Granulocytes, immature (%) 0.2 0.0 - 0.9 % [facility] ABSOLUTE NEUTS 6.04 1.92 - 7.60 K/uL [facility] ABSOLUTE LYMPHS 2.14 0.72 - 4.10 K/uL [facility] ABSOLUTE MONOS 0.40 0.16 - 1.10 K/uL [facility] ABSOLUTE EOS 0.09 0.00 - 0.50 K/uL [facility] ABSOLUTE BASOS 0.05 0.00 - 0.15 K/uL [facility] Granulocytes, immature 0.02 0.00 - 0.09 K/uL [facility] Blood 02/12/2025 6:36 PM EDT 02/12/2025 6:40 PM EDT us Prabhu Soria MD LAB BLOOD ORDERABLES Fin al Result Performing Organization Address [facility]/State/[facility] Co de Phone Number [address] [address] * COVID Pandemic Respiratory Viral Order (PRO) (02/12/2025 6:32 PM EDT) Test Ordered Rapid COVID has been ordered [facility] Specimen Source/Descri ption NASAL [facility] SARS-CoV 2 (COVID-19) PCR Not Detected Not Detected [facility] Other (Nasopharyngeal swab) 02/12/2025 6:32 PM EDT 02/12/2025 6:39 PM EDT us Prabhu Soria MD BODY FLUIDS AND STOOLS O RDERABLES Final Result [facility] [address] [place] [address] * ECG 12-LEAD (02/12/2025 6:27 PM EDT) Ventricular Rate EKG/MIN 67 BPM [facility] Atrial Rate 67 BPM [facility] MA Interval 156 ms [facility] QRS Duration 94 ms [facility] QT Interval 392 ms [facility] QTC Interval 414 ms [facility] P [place] 46 degrees [facility] R Wave [place] 53 degrees [facility] T Wave [place] 38 degrees [facility] 02/12/2025 6:27 PM EDT 02/13/2025 7:44 AM EDT Narrative [facility] - 02/13/2025 7:44 AM EDT Sinus rhythm with marked sinus arrhythmia Otherwise normal ECG No previous ECGs available Confirmed by Cristiano Forde ([id number]) on 02/13/2025 7:44:41 AM us Prabhu Soria MD ECG ORDERABLES Final Re sult Performing Organization Address [facility] Co de Phone Number [facility] documented in this encounter Visit Diagnoses Diagnosis Chest pain, unspecified type- Primary Epigastric pain Abdominal pain, epigastric documented in this encounter Administered Medications Inactive Administered Medications - up to 3 most recent administrations Medication Order MAR Action Action Date Dose Rate Site sodium chloride (NS) 0.9 % syringe flush 3 mL 3 mL, Intravenous, As needed, line care, Starting on 02/12/25 at 1829, Per Institutional IV Line Care Policy. documented in this encounter Active and Recently Administered Medications Times are shown in EDT. PRN Medication Order 02/10/2025 02/11/2025 02/12/2025 sodium chloride (NS) 0.9 % syringe flush 3 mL 3 mL, Intravenous, As needed, line care, Starting on 02/12/25 at 1829, Per Institutional IV Line Care Policy. documented in this encounter Additional Health Concerns Infection Onset Date Last Indicated Resolved Time CoV-Risk 02/12/2025 02/12/2025 documented as of this encounter Care Teams Equipment Sales Specialist Relationship Specialty Start Date End Date Belinda Villa MD [address] [place] [address] PCP - General Internal Medicine 02/12/25 documented as of this encounter Additional Source Comments The information contained in this document represents components of the legal health record. It is not the complete legal health record.[facility]
--- OUTSIDE RECORDS SUMMARY | 2025-02-12 20:25 | XMS_ITS | Encounter Summary ---
Author Organization [facility] Address [address] [facility] [facility] [address] [place] [id number] Phone Care Team Providers Care Software Engineer Advisor Name Role Phone Belinda Villa MD Primary Care Provider + [phone] Encounter Details Date Type Department Care Team (Late st Contact Info) Description 02/12/2025 8:25 PM EDT Ancillary Procedure [address] [address] Alem Wong PA-C [address] [place] [id number] [email or web address] Arrived Social History Tobacco Use Types Packs/Day Years [...] on file documented as of this encounter Functional Status * Calculated C-SSRS Risk Score (Lifetime/Recent) Answer Date of Assessment Author No Risk Indicated 02/12/2025 6:27 PM EDT Jennifer Roberson RN * Continental Suicide Severity Rating Scale (Screener/Recent Self-Report) Question Answer Date of Assessment Author 1. Wish to be (Past 1 Month) No 02/12/2025 6:27 PM EDT Jerri Saul RN 2. Non-Specific Active Suicidal Thoughts (Past 1 Month) No 02/12/2025 6:27 PM EDT Jerri Saul RN 6. Suicidal Behavior (Lifetime) No 02/12/2025 6:27 PM EDT Jerri Saul RN documented as of this encounter Plan of Treatment Not on file documented as of this encounter Procedures Procedure Name Priority Date/Time Associated Diagnosis Comments US BEDSIDE Routine 02/12/2025 8:24 PM EDT documented in this encounter Results * US BEDSIDE (02/12/2025 8:24 PM EDT) [...] indeterminate Images: Images Saved: Yes Accession Number: [id number] us Alem Wong PA-C IMG POINT OF CARE EXAMS Fin al Result documented in this encounter Visit Diagnoses Not on filedocumented in this encounter Additional Health Concerns Infection Onset Date Last Indicated Resolved Time CoV-Risk 02/12/2025 02/12/2025 documented as of this encounter Care Teams Software Engineer Advisor Relationship Specialty Start Date End Date Belinda Villa MD [address] [place] [address] PCP - General Internal Medicine 02/12/25 documented as of this encounter Additional Source Comments The information contained in this document represents components of the legal health record. It is not the complete legal health record.[facility]
--- OUTSIDE RECORDS SUMMARY | 2025-02-13 10:56 | XMS_ITS | Encounter Summary ---
Author Organization [facility] Address [address] [facility] [address] [place] [phone] Phone Care Team Providers Care Thermite Welder Name Role Phone Belinda Villa MD Primary Care Provider + [phone] Encounter Details Date Type Department Care Team (Latest Contact Info) Description 02/13/2025 10:56 AM EDT - 02/13/2025 11:59 PM EDT Hospital Encounter [address] [address] Alem Wong PA-C [address] [place] [id number] [email or web address] Arrived Discharge Disposition: Home or Self Care Social [...] on file documented as of this encounter Plan of Treatment Not on file documented as of this encounter Procedures Procedure Name Priority Date/Time Associated Diagnosis Comments US ABDOMEN LIMITED RIGHT UPPER QUADRANT Routine 02/13/2025 11:20 AM EDT documented in this encounter Results * [...] within normal limits without evidence for obstructivephysiology. us Alem Wong PA-C IMG US ABDOMEN Final Resul t documented in this encounter Visit Diagnoses Not on filedocumented in this encounter Additional Health Concerns Infection Onset Date Last Indicated Resolved Time CoV-Risk 02/12/2025 02/12/2025 documented as of this encounter Care Teams Thermite Welder Relationship Specialty Start Date End Date Belinda Villa MD [address] [place] [address] PCP - General Internal Medicine 02/12/25 documented as of this encounter Additional Source Comments The information contained in this document represents components of the legal health record. It is not the complete legal health record.[facility]
--- NOTE | 2025-02-15 | ECG_ITS ---
Test Reason : cp Blood Pressure : */* mmHG Vent. Rate : 70 BPM Atrial Rate : 70 BPM P-R Int : 152 ms QRS Dur : 80 ms QT Int : 362 ms P-R-T Axes : 58 71 38 degrees QTcB Int : 390 ms Normal sinus rhythm Nonspecific ST abnormality Abnormal ECG No previous ECGs available Referred By: Generic ED Physician Electronically Signed By: John Lake
--- NOTE | ~2025-02-15 | XR_ITS ---
EXAMINATION: XR CHEST CLINICAL INFORMATION: left sided pain COMPARISON: None available. TECHNIQUE: PA and lateral views. FINDINGS: No consolidation, pleural effusion or pneumothorax. Questionable haziness in the right middle lung lobe. Cardiomediastinal silhouette size is normal. Patient's large body habitus/obesity. Osseous structures are intact. XR/XR chest 2V IMPRESSION: Questionable airspace disease right middle lung lobe versus artifactual summation of soft tissues. Electronically signed by: López Robin MD 02/15/2025 12:58 PM EDT
--- NOTE | 2025-02-15 10:52 | ED.GENADULT ---
HPI - General Adult General Chief complaint: Chest Pain Stated complaint: CP Time Seen by Provider: 02/15/25 11:59 History of Present Illness ED Provider: Ildefonso TAYLOR narrative: The patient is a 34-year-old woman with a history of functional seizures. She also has a Nexplanon device. The patient says that 3 days ago on Thursday she had severe epigastric pain. This prompted her to take her to the emergency room at [facility] [place]. In the emergency room she has a bedside ultrasound that was potentially abnormal but her workup was otherwise unremarkable. She was discharged from the emergency room to returned to the hospital for a formal ultrasound and Radiology the next morning. This was apparently normal. Despite this the patient has continued to have significant epigastric pain. She says it radiates to her left side. Additionally she feels that the pain has spread to her left chest and into her left jaw and down her left arm. She says that yesterday she rested and did very little. She continued to have these symptoms during the day yesterday. Today she called her PCP for follow up. However when she described the symptoms to the PCP office she was advised to come to the hospital. She drove herself to the emergency room here. No fevers. While in the emergency department waiting room she had an episode of possible seizure-like activity. This was not associated with any postictal state. Her blood sugar the time was stable. She says that she has a history of functional seizures. She says that she feels that the episode happened because of anxiety. Related Data Home Medications ?Medication ?Instructions ?Recorded ?Confirmed [id number] 250 1 tab PO Q4-6H PRN 04/05/24 mg-250 mg-65 mg tablet (Excedrin Extra Strength) Previous Rx's ?Medication ?Instructions ?Recorded pantoprazole 20 mg tablet,delayed 20 mg PO DAILY #90 tabs 04/05/24 release escitalopram oxalate 20 mg tablet 30 mg (1.5 x 20 mg) PO DAILY #135 07/08/24 tabs buspirone 10 mg tablet 10 mg PO TID #90 tabs 01/23/25 ondansetron 4 mg disintegrating 4 mg PO Q6H PRN nausea and 02/15/25 tablet vomiting #10 tabs sucralfate 100 mg/mL oral 10 ml PO QID PRN epigastric pain 02/15/25 suspension #420 mL Allergies Allergy/AdvReac Type Severity Reaction Status Date / Time No Known Allergies Allergy Verified 02/15/25 10:57 Review of Systems Review of Systems: Yes all other systems are reviewed and are negative [facility] Family History Family History Mother Heart murmur after rheumatic heart disease HTN (hypertension) Father Anxiety Depression HTN (hypertension) Other FH: mental illness PTSD (post-traumatic stress disorder) Social History Social History Housing: House Alcohol intake: current Patient Tobacco Use Status: Current everyday Tobacco user Cigarette Packs Per Day: 0.5 Years Smoked: 10 e-Cigarette/Vaping Use: Currently Using Substance Use Type: Marijuana service: No Current occupational status: unemployed Cognitive needs: No Hearing needs: No Vision needs: No Physical Exam ED Vital Signs: Vital Signs - 24 hr 02/15/25 10:54 Temperature 98.5 F Pulse Rate 87 Respiratory Rate 18 Blood Pressure 134/92 H Pulse Oximetry 100 Oxygen Delivery Method Room Air BMI result Body Mass Index 32.4 Const Other: The patient is awake and alert. She does not seem to be in acute distress. Orientation/consciousness: patient oriented x3 HENMT Other: The face is symmetrical. ?Mucous membranes moist. Eyes Other: Pupils are round equal, conjunctivae are clear, extraocular movements intact Neck Neck: Yes normal visual inspection, Yes full ROM, Yes no meningeal signs and Yes no JVD Resp Effort & Inspection: normal respiratory effort Auscultation: clear to auscultation bilaterally Cardio Rate: regular rate Rhythm: regular rhythm Heart sounds: S1 normal heart sound present and S2 normal heart sound present GI Other: The patient has a epigastric tenderness. The abdomen is otherwise soft and nontender. Skin Other: The skin is dry and unremarkable Neuro General: patient oriented x3, tone normal, moves all extremities, no meningeal signs, no focal motor deficits and CN's II-XI intact bilaterally Extrem Other: There is no calf swelling or tenderness. No asymmetry. No peripheral edema. Course Course Course Narrative: This is a Rapid Medical Examination (RME) performed by Tomas Yost PA-C in triage. Full HPI, ROS, assessment and treatment plan per primary provider in the Main ED. Hx: Pt. is a 34 yo F with a pmhx of bradycardia, migraines, and anxiety presenting with a CC of chest pain,SOB, tingling around mouth and L arm, dizziness, and epigastric pain X 3 days. Endorses pain with food intake. Seen thursday night and thursday morning at [facility] with unremarkable workup (labs, RUQ US, Chest XR, EKG). PE/vitals: Not hypoxic, tachycardic Plan:Labs, EKG Medications Administered Discontinued Medications Generic Name Dose Route Start Last Admin Trade Name Freq PRN Reason Stop Dose Admin Droperidol 1.25 mg 02/15/25 12:33 02/15/25 13:26 Droperidol 5 Mg/2 Ml Vial IVPUSH 02/15/25 12:34 1.25 mg ONCE ONE Administration Sodium Chloride 1,000 mls @ 999 mls/hr 02/15/25 12:45 02/15/25 13:26 Ns IV 02/15/25 13:45 999 mls/hr .Q1H1M JOSE Administration Sucralfate 1 gm 02/15/25 12:33 02/15/25 13:26 Sucralfate Oral Suspension 1 Gm/10 Ml Oral.Susp PO 02/15/25 12:34 1 gm ONCE ONE Administration Medical Decision Making Medical Decision Making [facility] Narrative: The patient is a 34-year-old female who is generally in good health although she reports a history of functional seizures. She has a Nexplanon device implanted in her left arm. She has had epigastric discomfort for about 3 days. She was seen at [facility] [place] where she had an ultrasound that showed no biliary problems. She has continued to have epigastric discomfort and has subsequently developed left-sided chest pain as well that radiates down her left arm and she feels short of breath. Clinically the patient looks well. She had a seizure-like episode in the waiting room which was not associated with a postictal phase. The patient reports a history of functional seizures and I suspect this was a functional seizure as the patient herself admits. Today we did an EKG that is unremarkable. Chest x-ray is unremarkable. She has unremarkable LFTs and lipase. She has a normal troponin. She has a an undetectable D-dimer. My suspicion for an acute coronary syndrome, pulmonary embolism, or an acute intra-abdominal process is extremely low. She was treated symptomatically with a dose of IV droperidol and a dose of liquid oral sucralfate. She felt considerably better and felt well enough for discharge. She is already on pantoprazole. I will prescribe sucralfate that she can use in addition to her pantoprazole. She should follow up with her PCP. I suspect she has a gastritis. Lab Data 02/15/25 11:06 02/15/25 11:06 Labs: Lab Results 02/15/25 02/15/25 02/15/25 Range/Units 11:06 11:34 11:48 WBC 7.6 (4.8-10.8) X10*3/uL RBC 4.39 (4.20-5.50) X10*6/uL Hgb 13.3 (12.0-16.0) g/dl Hct 39.1 (37.0-47.0) % MCV 89.1 (80.0-98.0) fL MCH 30.3 (27.0-33.0) pg MCHC 34.0 (31.0-35.0) g/dl RDW 12.4 (11.0-16.0) % Plt Count 265 (160-400) X10*3/uL MPV 9.1 L (9.4-12.3) fL Immature Gran % (Auto) 0.3 (0.0-0.4) % Neut % (Auto) 68.9 (45-73) % Lymph % (Auto) 24.5 (20-40) % Page % (Auto) 4.4 (2-11) % Eos % (Auto) 1.1 (0-4) % Baso % (Auto) 0.8 (0-2) % Lymph # (Auto) 1.9 (1.2-4.9) X10*3/uL Page # (Auto) 0.3 (0.1-1.2) X10*3/uL Eos # (Auto) 0.1 (0.0-0.4) X10*3/uL Baso # (Auto) 0.1 (0.0-0.2) X10*3/uL Abs Immat Gran (auto) 0.02 (0.00-0.03) X10*3/uL Absolute Neuts (auto) 5.2 (2.0-8.3) x10*3/uL Absolute Nucleated RBC 0.000 (0.0-0.012) X10*3/uL Nucleated RBC % (auto) 0.0 (0.0-0.2) /100WBC PT 10.5 L (10.9-12.4) SEC INR 0.9 (0.9-1.1) D-Dimer High Sensitivty < 150 NG/ML Sodium 140 (135-145) mmol/L Potassium 4.0 (3.3-5.1) mmol/L Chloride 113 H (96-108) mmol/L Carbon Dioxide 22 (22-29) mmol/L Anion Gap 9 L (12-20) BUN 9 (9-16) mg/dL Creatinine 0.82 (0.5-1.4) mg/dL Estim Creat Clear Calc 100.5 Estimated GFR > 60 POC Glucose 89 (60-115) mg/dL Random Glucose 84 (60-115) mg/dL Calcium 9.0 (8.4-10.2) mg/dL Magnesium 2.2 (1.6-2.6) mg/dL Total Bilirubin 0.7 (0.0-1.0) mg/dL AST 16 (5-31) U/L ALT 17 (0-31) U/L Alkaline Phosphatase 75 (39-117) U/L Troponin I High Sens < 2.7 (<3.5-17.0) ng/L C-Reactive Protein < 0.10 (< or = 0.50) mg/dL Total Protein 7.1 (6.5-8.0) g/dL Albumin 4.4 (3.5-5.0) g/dL Lipase 50 (8-78) U/L Beta HCG, Quant < 2 mIU/mL Ethyl Alcohol < 10 mg/dL Independent Interpretation I performed an independent interpretation of an: EKG Interpretation: EKG at 1031 shows normal sinus rhythm at 70 beats per minute. There are nonspecific ST changes but I do not really feel they are any acute findings of significance. On the whole it looks like a reassuring EKG. Discharge Plan Discharge Clinical Impression: Epigastric abdominal pain, Chest pain Patient Disposition: Home, Self-Care Instructions: Gastritis (ED) Additional Instructions: Your testing today is very reassuring. There was no sign of a heart attack. There was no sign of a blood clot in your lungs. There was no sign of infection in your system. I think that the symptoms you are experiencing in your abdomen or probably related to gastritis. This is an irritation of the lining of the stomach. Please continue your pantoprazole. In addition I have sent a prescription for the medication sucralfate which you can use up to 4 times a day as needed. This might be soothing to your stomach. Please contact your regular doctor's office today for a follow up appointment to discuss these symptoms further. Return to the emergency room if significantly worse. Prescriptions: New sucralfate 100 mg/mL suspension 10 ml PO QID PRN (Reason: epigastric pain) Qty: 420 0RF Rx Instructions: swish in mouth and swallow; use after food/drink ondansetron 4 mg tablet,disintegrating 4 mg PO Q6H PRN (Reason: nausea and vomiting) Qty: 10 0RF No Action Excedrin Extra Strength 250-250-65 mg tablet 1 tab PO Q4-6H PRN pantoprazole 20 mg tablet,delayed release (DR/EC) 20 mg PO DAILY Qty: 90 3RF escitalopram oxalate 20 mg tablet 30 mg PO DAILY Qty: 135 3RF buspirone 10 mg tablet 10 mg PO TID Qty: 90 3RF Referrals: Belinda Madrigal MD [Primary Care Provider, Endocrinology] Print Language: Albanian
[2025-02-15 10:54] VITALS: BP 134/92; PULSE 87; RESP 18; TEMP 36.9; O2SAT 100; BMI 32.4
[2025-02-15 11:11] LABS: MANUAL DIFF FLAG NO
[2025-02-15 11:13] LABS: Hematocrit 39.1 % (37.0-47.0); Hemoglobin 13.3 g/dl (12.0-16.0); Imm Gran Abs Auto 0.02 X10*3/uL (0.00-0.03); Imm Gran Pct Auto 0.3 % (0.0-0.4); Lymphocytes Absolute Auto 1.9 X10*3/uL (1.2-4.9); Mean Corpuscular HGB Conc 34.0 g/dl (31.0-35.0); Mean Corpuscular Hemoglobin 30.3 pg (27.0-33.0); Mean Corpuscular Volume 89.1 fL (80.0-98.0); NRBC Abs Auto 0.000 X10*3/uL (0.0-0.012); NRBC Pct Auto 0.0 /100WBC (0.0-0.2); Platelet Count 265 X10*3/uL (160-400); Red Blood Count 4.39 X10*6/uL (4.20-5.50); White Blood Count 7.6 X10*3/uL (4.8-10.8)
[2025-02-15 11:34] LABS: Alanine Aminotransferase 17 U/L (0-31); Albumin Level 4.4 g/dL (3.5-5.0); Alkaline Phosphatase 75 U/L (39-117); Anion Gap 9 (12-20); Aspartate Amino Transferase 16 U/L (5-31); Blood Urea Nitrogen 9 mg/dL (9-16); Calcium 9.0 mg/dL (8.4-10.2); Carbon Dioxide 22 mmol/L (22-29); Chloride 113 mmol/L (96-108); Creatinine Clr Calc Pharmacy 100.5; Estimated Glomerular Filt Rate > 60; Lipase 50 U/L (8-78); Magnesium 2.2 mg/dL (1.6-2.6); Potassium 4.0 mmol/L (3.3-5.1); Sodium 140 mmol/L (135-145); Total Protein 7.1 g/dL (6.5-8.0)
[2025-02-15 11:38] LABS: Glucose, Whole Blood 89 mg/dL (60-115)
--- NOTE | 2025-02-15 11:40 | PC.NURSE ---
Patient transferred from ED waiting room to ED 17, witnessed ?seizure in waiting room. 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 Hasn't taken any of her prescribed medications this morning. Stated that just before 'seizure-like episode', patient stated that her chest pain increased suddenly. Placed on cardiac monitoring, vitals stable at this time. IV access to be established. Seizure pads/precautions in place. Airway patent.
[2025-02-15 12:06] LABS: INTERNATIONAL NORM RATIO 0.9 (0.9-1.1); Prothrombin Time 10.5 SEC (10.9-12.4)
[2025-02-15 12:20] LABS: Troponin-I High Sensitivity < 2.7 ng/L (<3.5-17.0)
[2025-02-15] MEDS: Sucralfate Oral Suspension 1 GM/10 ML ORAL.SUSP PO (13:26)
[2025-02-15 13:36] LABS: D Dimer High Sensitivity < 150 NG/ML
--- OUTSIDE RECORDS SUMMARY | 2025-02-15 13:45 | XMS_ITS | Clinical Summary ---
Author Organization [facility] Address [address] [facility] [address] [place] [address] Phone Care Team Providers Care Display Mechanic Name Role Phone Belinda Villa MD Primary Care Provider Allergies No known active allergies Encounters Date Type Department Care Team Description 02/13/2025 10:56 AM EDT - 02/13/2025 11:59 PM EDT Hospital Encounter [address] [address] Alem Wong PA-C Arrived Discharge Disposition: Home or Self Care 02/12/2025 8:25 PM EDT Ancillary Procedure [address] [address] Alem Wong PA-C Arrived 02/12/2025 6:58 PM EDT - 02/12/2025 9:10 PM EDT Emergency [facility] [address] [place] [id number] Discharge Disposition: Home or Self Care from Last 3 Months Social History Tobacco Use Types Packs/Day Years [...] on file Sexual Orientation Not on file Last Filed Vital Signs Vital Sign Reading [...] Mass Index 32.42 02/12/2025 6:24 PM EDT Plan of Treatment Health Maintenance Due Date Last Done Comments Adult Td,Tdap Booster 1992 DEPRESSION SCREENING 2004 SMOKING Hx and SMOKELESS TOB ACCO SCREENING 2005 HEPATITIS C SCREENING 2010 HIV ONE-TIME SCREENING (18-6 5 YEARS) 2010 PNEUMOCOCCAL VACCINES (0-49 years) (1 of 2 - PCV) 12/18/2011 PAP SMEAR 2013 INFLUENZA VACCINE (#1) 2024 COVID-19 VACCINE (1 - 2024-2 6 season) 2025 HEPATITIS A VACCINES Aged Out No long er eligible based on patient's age to complete this topic HIB VACCINES Aged Out No longer eligi ble based on patient's age to complete this topic MENINGOCOCCAL VACCINES (ACWY) Aged Out No longer eligible based on patient's age to complete this topic MENINGOCOCCAL VACCINES (B) Aged Out N o longer eligible based on patient's age to complete this topic Medical Devices Not on file Procedures Procedure Name Priority Date/Time Associated Diagnosis Comments US ABDOMEN LIMITED RIGHT UPPER QUADRANT Routine 02/13/2025 11:20 AM EDT US BEDSIDE Routine 02/12/2025 8:24 PM EDT TROPONIN STAT 02/12/2025 7:35 PM EDT XR CHEST PA AND LATERAL 2 VIEWS STAT 02/12/2025 7:06 PM EDT LFTS (HEPATIC PANEL) Routine 02/12/2025 6:36 PM EDT LIPASE Routine 02/12/2025 6:36 PM EDT TROPONIN STAT 02/12/2025 6:36 PM EDT BASIC METABOLIC PANEL STAT 02/12/2025 6:36 PM EDT CBC AND DIFFERENTIAL STAT 02/12/2025 6:36 PM EDT COVID PANDEMIC RESPIRATORY VIRAL ORDER (PRO) STAT 02/12/2025 6:32 PM EDT ECG 12-LEAD STAT 02/12/2025 6:27 PM EDT from Last 3 Months Results * US ABDOMEN LIMITED RIGHT UPPER [...] indeterminate Images: Images Saved: Yes Accession Number: [id number] us Alem Wong PA-C IMG POINT OF CARE EXAMS Fin al Result * Troponin (02/12/2025 7:35 PM EDT) Only the most recent of2 resultswithin the time period is included. Troponin-T, HS Gen5 <6 0 - 9 ng/L [facility] Blood 02/12/2025 7:35 PM EDT 02/12/2025 7:39 PM EDT us Prabhu Soria MD LAB BLOOD ORDERABLES Fin al Result [address] [address] * XR CHEST PA AND LATERAL 2 VIEWS (02/12/2025 7:06 PM EDT) Anatomical Region Laterality Modality Chest Computed Radiogr aphy 02/12/2025 7:08 PM EDT Impressions 02/12/2025 7:12 PM EDT No acute abnormality. ATTESTATION: IMarci as teaching physician, have reviewed the images for this case and if necessary edited the report originally created by Gregoria Arango MD. Narrative 02/12/2025 7:12 PM EDT XR CHEST PA AND LATERAL 2 VIEWS Referring clinician's provided indication for this examination in Epic: Dyspnea (Shortness of Breath) COMPARISON: None. FINDINGS: Devices/Tubes/Lines: None. Lungs: No focal consolidation or pulmonary edema. Pleura: No pleural effusion or pneumothorax. Heart/Mediastinum: Cardiac and mediastinal silhouettes are within normal limits. Bones/Soft Tissues: No acute osseous abnormality. Procedure Note Marci Powell MBBS - 02/12/2025 XR CHEST PA AND LATERAL 2 VIEWS Referring clinician's provided indication for this examination in Epic:Dyspnea (Shortness of Breath) COMPARISON: None. FINDINGS: Devices/Tubes/Lines: None. Lungs: No focal consolidation or pulmonary edema. Pleura: No pleural effusion or pneumothorax. Heart/Mediastinum: Cardiac and mediastinal silhouettes are within normallimits. Bones/Soft Tissues: No acute osseous abnormality. IMPRESSION: No acute abnormality. ATTESTATION: I, Marci Powell as teaching physician, have reviewedthe images for this case and if necessary edited the report originallycreated by Gregoria Arango MD. us Prabhu Soria MD IMG XR CHEST Final Re sult * LFTs (hepatic panel) (02/12/2025 6:36 PM EDT) ALKALINE PHOSPHATASE 83 39 - 117 U/L [facility] TOTAL BILIRUBIN 0.8 0.0 - 1.2 mg/dL [facility] DIRECT BILIRUBIN 0.2 0.0 - 0.2 mg/dL [facility] Bilirubin (Indirect) 0.6 0 - 1.5 mg/dL [facility] AST 13 0 - 37 U/L [facility] ALT 17 0 - 40 U/L [facility] TOTAL PROTEIN 7.1 6.5 - 8.0 g/dL [facility] ALBUMIN 4.3 3.9 - 4.8 g/dL [facility] GLOBULIN 2.8 1 - 4.8 g/dL [facility] A/G Ratio 1.54 1.00 - 4.80 RATIO [facility] 02/12/2025 6:36 PM EDT 02/12/2025 6:40 PM EDT us Prabhu Soria MD LAB BLOOD ORDERABLES Fin al Result [facility] [address] [place] [address] * CBC and differential (02/12/2025 6:36 PM EDT) WBC 8.74 4.00 - 11.00 K/uL [facility] RBC 4.24 4.00 - 5.20 M/uL [facility] HGB 13.0 12.0 - 16.0 g/dL [facility] HCT 37.3 36.0 - 46.0 % [facility] PLT 267 150 - 450 K/uL [facility] MCV 88.0 80.0 - 100.0 fL [facility] MCH 30.7 27.0 - 31.0 pg [facility] MCHC 34.9 32.0 - 36.0 g/dL [facility] RDW 12.7 11.5 - 14.5 % [facility] MPV 9.0 8.4 - 12.0 fL [facility] NRBC 0.00 0.00 /100 WBCs [facility] ABSOLUTE NRBC 0.00 0.00 K/uL [facility] DIFF METHOD Auto [facility] NEUTS 69.1 48.0 - 76.0 % [facility] LYMPHS 24.5 18.0 - 41.0 % [facility] MONOS 4.6 4.0 - 11.0 % [facility] EOS 1.0 0.0 - 5.0 % [facility] BASOS 0.6 0.0 - 1.5 % [facility] Granulocytes, immature (%) 0.2 0.0 - 0.9 % [facility] ABSOLUTE NEUTS 6.04 1.92 - 7.60 K/uL [facility] ABSOLUTE LYMPHS 2.14 0.72 - 4.10 K/uL [facility] ABSOLUTE MONOS 0.40 0.16 - 1.10 K/uL [facility] ABSOLUTE EOS 0.09 0.00 - 0.50 K/uL [facility] ABSOLUTE BASOS 0.05 0.00 - 0.15 K/uL [facility] Granulocytes, immature 0.02 0.00 - 0.09 K/uL [facility] Blood 02/12/2025 6:36 PM EDT 02/12/2025 6:40 PM EDT Prabhu Soria MD LAB BLOOD ORDERABLES Fin al Result Performing Organization Address [facility]/ZIP Co de Phone Number [address] [address] * Lipase (02/12/2025 6:36 PM EDT) LIPASE 44 16 - 63 U/L [facility] 02/12/2025 6:36 PM EDT 02/12/2025 6:40 PM EDT Prabhu Soria MD LAB BLOOD ORDERABLES Fin al Result Performing Organization Address [facility] Co de Phone Number [address] [address] * Basic metabolic panel (02/12/2025 6:36 PM EDT) SODIUM 141 133 - 146 mmol/L [facility] CHLORIDE 107 96 - 108 mmol/L [facility] POTASSIUM 3.4 3.3 - 5.1 mmol/L [facility] CO2 23 21 - 35 mmol/L [facility] BUN 10 6 - 19 mg/dL [facility] CREATININE 0.70 0.5 - 1.5 mg/dL [facility] GLUCOSE 78 70 - 99 mg/dL [facility] CALCIUM 9.4 8.4 - 10.3 mg/dL [facility] EGFR 118 >59 mL/min/1.7 3m2 [facility] Comment:Estimated glomerular filtration rate calculated using the CKD-EPI refit equation. ANION GAP 14 10 - 20 mmol/L [facility] Blood 02/12/2025 6:36 PM EDT 02/12/2025 6:40 PM EDT us Prabhu Soria MD LAB BLOOD ORDERABLES Fin al Result Performing Organization Address City/[facility]/ZIP Co de Phone Number [address] [address] * COVID Pandemic Respiratory Viral Order (PRO) (02/12/2025 6:32 PM EDT) Test Ordered Rapid COVID has been ordered [facility] Specimen Source/Descri ption NASAL [facility] SARS-CoV 2 (COVID-19) PCR Not Detected Not Detected [facility] Other (Nasopharyngeal swab) 02/12/2025 6:32 PM EDT 02/12/2025 6:39 PM EDT us Prabhu Soria MD BODY FLUIDS AND STOOLS O RDERABLES Final Result Performing Organization Address [facility]/ZIP Co de Phone Number [address] [address] * ECG 12-LEAD (02/12/2025 6:27 PM EDT) Ventricular Rate EKG/MIN 67 BPM [facility] Atrial Rate 67 BPM [facility] MN Interval 156 ms [facility] QRS Duration 94 ms [facility] QT Interval 392 ms [facility] QTC Interval 414 ms [facility] P [place] 46 degrees [facility] R Wave [place] 53 degrees [facility] T Wave [place] 38 degrees [facility] 02/12/2025 6:27 PM EDT 02/13/2025 7:44 AM EDT Narrative [facility] - 02/13/2025 7:44 AM EDT Sinus rhythm with marked sinus arrhythmia Otherwise normal ECG No previous ECGs available Confirmed by Cristiano Forde ([id number]) on 02/13/2025 7:44:41 AM us Prabhu Soria MD ECG ORDERABLES Final Re sult [facility] Organization Address City/State/ZIP Co de Phone Number [facility] from Last 3 Months Additional Health Concerns Infection Onset Date Last Indicated CoV-Risk 02/12/2025 02/12/2025 Insurance O POS EPO O POS EPO O [place] [address] [place] [address] POS EPO [facility] POS EPO [facility] POS EPO Care Teams Display Mechanic Relationship Specialty Start Date End Date Belinda Villa MD [address] [facility] [address] PCP - General Internal Medicine 02/12/25 Additional Source Comments The information contained in this document represents components of the legal health record. It is not the complete legal health record.[facility]
--- NOTE | 2025-02-15 14:21 | PC.NURSE ---
Patient anxious, asking regarding discharge. Dr. Fregoso to bedside to speak with patient.
[2025-02-15 14:41] VITALS: BP 113/67; PULSE 77; RESP 16; TEMP 36.4; O2SAT 98
[2025-02-15 14:43] VITALS: BP 113/67; PULSE 77; RESP 16; TEMP 36.4; O2SAT 98
== END 2025-02-15 14:43 | disposition home or self-care (01) ==
PROVIDERS: Physician Assistant Medical; Emergency Provider Emergency Medicine; PCP Internal Medicine
DX: R10.13 Epigastric pain (principal); R07.89 Other chest pain; R10.22 Pelvic and perineal pain left side; Z79.899 Other long term (current) drug therapy; F17.210 Nicotine dependence, cigarettes, uncomplicated; Z51.81 Encounter for therapeutic drug level monitoring
CPT/HCPCS: 36415; 71046; 80053; 80307; 82947; 83690; 83735; 84484; 84702; 85025; 85379; 85610; 86140; 93005; 96374; 99284; J1790

== ENCOUNTER → 2025-02-15 10:31 | Outpatient (BNV) | payer OTHER, SELFPAY | PROVIDERS: Emergency Provider Emergency Medicine; PCP Internal Medicine; Visit Provider Internal Medicine Cardiovascular Disease | DX: R94.31 Abnormal electrocardiogram [ECG] [EKG] (principal); R07.89 Other chest pain | CPT/HCPCS: 93010 ==

== ENCOUNTER → 2025-02-15 12:35 | Outpatient (BNV) | payer OTHER, SELFPAY | PROVIDERS: Emergency Provider Emergency Medicine; PCP Internal Medicine; Visit Provider Radiology Diagnostic Radiology | DX: R07.89 Other chest pain (principal) | CPT/HCPCS: 71046 ==

== ENCOUNTER 2025-02-21 11:04 | Outpatient (AMB) | payer OTHER, SELFPAY ==
--- NOTE | 2025-02-21 11:14 | A.OFFPC_ITS ---
Vital Signs 02/21/25 11:20 Height 5 ft 3 in Weight 218 lb BMI 38.6 BP 124/82 Blood Pressure Location Rt brachial Position Sitting Respiration 20 Pulse 78 Pulse Source Pulse Oximeter Temp 98.5 F Temp Source Oral Pulse Oximetry (%) 98 Oxygen Delivery Method Room Air Intake Visit Reasons: ED visit 02/15 at [facility] Intake Note: ED visit 02/15 at [facility] Registered Land Surveyor Required: No Allergies grape Allergy (Intermediate, Verified 02/21/25 11:18) Shortness of Breath Tobacco use date assessed: 02/21/25 Dental Screening Dental Screen Date: 02/21/25 Did you have a dental visit in the last 12 months?: No Did you have a dental problem in the last 6 months where you did not have access to dental care?: Yes Was dental information given to patient?: Patient has dentist HPI HPI Comments History of Present Illness Details The patient is a 34 year old female with a past medical history of anxiety, depression, seizures, asthma presenting for ER follow up She was recently evaluated in the ER x 2. [facility] and [facility]. She developed severe epigastric, central chest pain with radiation to the jaw and left arm. She had labs, ekg, us which were reassuring. She was advised to start sucralfate and continue prilosec. She has continued to have the pain, worsens with eating. She has afraid to eat to worsen the discomfort. Anxiety: stable on lexapro, still with some breakthrough anxiety. Lorazepam too sedating Was referred to at last visit in July. Was feeling depressed, manic at the time. Doing better but still high levels of anxiety. BP is high today. Has done well with lexapro in the past but after a few months doesnt seem to work as well. would like to try again Migraines have lessened since starting back on SSRI. She has had dental issues since childhood. She has had recurring right low deann. She was referred to [facility] last visit. Patient notes that she has had recurrent palpitations, lightheadedness. She notes intermittent bradycardia. Tells me she has been on a heart monitor in the past. GERD: previously stable on PPI. See HPI Asthma: on albuterol as needed. She thinks given her constellation of symptoms that she may suffer from POTS. 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 NAD EYES: EOMI. Anicteric. HENT: Moist mucous membranes. No scleral icterus. No cervical lymphadenopathy. LUNGS: Clear to auscultation bilaterally. CARDIOVASCULAR: Regular rate and rhythm. No murmur. No JVD. ABDOMEN: Soft, non-tender +bs EXTREMITIES: No edema. Non-tender. SKIN: No rashes or lesions. Warm. NEUROLOGIC: No focal neurological deficits. CN II-XII grossly intact PSYCHIATRIC: Cooperative. Appropriate mood and affect REPLACED BY [facility] Family History Mother Heart murmur after rheumatic heart disease HTN (hypertension) Father Anxiety Depression HTN (hypertension) Other FH: mental illness PTSD (post-traumatic stress disorder) Social History Housing: House Alcohol intake: current Patient Tobacco Use Status: Current everyday Tobacco user Cigarette Packs Per Day: 0.5 Years Smoked: 10 e-Cigarette/Vaping Use: Currently Using Substance Use Type: Marijuana service: No Current occupational status: unemployed Cognitive needs: No Hearing needs: No Vision needs: No Questionnaire PHQ-9 Over the last 2 weeks, how often have you been bothered by any of the following problems? 1. Little interest or pleasure in doing things: more than half the days 2. Feeling down, depressed, or hopeless: several days 3. Trouble falling or staying asleep, or sleeping too much: more than half the days 4. Feeling tired or having little energy: more than half the days 5. Poor appetite or overeating: nearly every day 6. Feeling bad about yourself - or that you are a failure or have let yourself or your family down: not at all 7. Trouble concentrating on things, such as reading the newspaper or watching television: several days 8. Moving or speaking so slowly that other people could have noticed. Or the opposite - being so fidgety or restless that you have been moving around a lot more than usual: more than half the days 9. Thoughts that you would be better off or of hurting yourself in some way: not at all Total score: 13 Depression Screening Interpretation: Positive Depression Screening Follow-up: Existing condition Depression Screening Done: Yes 86608 - PHQ-9 Billing: Yes Source: Developed by Drs. Leroy Gonzalez, Jolly Irizarry, Demetri Alvarez and colleagues, with an educational cristopher from [employer]. Thrive Questionnaire Date Thrive assessed: 01/23/25 I am a: Patient What is your living situation today?: I have a steady place to live Within the past 12 months, did the food you bought not last and you didn't have the money to get more?: Never true Within the past 12 months, did you worry whether your food would run out before you got money to buy more?: Never true Do you have trouble paying for medicines?: Yes Do you have trouble getting transportation to medical appointments?: No Do you have trouble paying your heating and electricity bill?: No Do you have trouble taking care of your child, family member or friend?: No Do you have trouble with day-to-day activities such as bathing, preparing meals, shopping, managing finances, etc.?: No Are you currently unemployed and looking for a job?: No Are you interested in more education?: No Please select the resources that you would like help with: None Currently or been in a relationship where the following occur: No concerns reported THRIVE Score: 0 AUDIT C Alcohol Use Questionnaire (AUDIT-C) 1. How often do you have a drink containing alcohol?: Monthly or less 2. How many drinks containing alcohol do you have on a typical day when you are drinking?: 1 or 2 3. How often do you have six or more drinks on one occasion?: Never Total Score: 1 RYAN-7 AMB Questionnaire RYAN-7 Date RYAN - 7 assessed: 02/21/25 Feeling nervous, anxious, or on edge: 3 = Nearly every day Not being able to stop or control worryin = More than half the days Worrying too much about different things: 1 = Several days Trouble relaxin = More than half the days Being so restless that it is hard to sit still: 2 = More than half the days Becoming easily annoyed or irritable: 2 = More than half the days Feeling afraid as if something awful might happen: 0 = Not at all Total RYAN-7 score (0-4 normal; 5-9 mild; 10-14 moderate; 15-21 severe): 12 Source: Developed by Drs. Leroy Gonzalez, Jolly Irizarry, Demetri Alvarez and colleagues, with an educational cristopher from [employer]. RYAN-7 Assessment Billing RYAN-7 Assessment Tool: RYAN-7 Assessment 36236 Physical exam (Primary Care) Vital Signs: Last Vital Signs Temp 98.5 F 02/21/25 11:20 Pulse 78 02/21/25 11:20 Resp 20 02/21/25 11:20 BP 124/82 02/21/25 11:20 Pulse Ox 98 02/21/25 11:20 Oxygen Delivery Method Room Air 02/21/25 11:20 BMI result Body Mass Index 38.6 Tobacco/Smoking Status: Tobacco use Status Tobacco use date assessed 02/21/25 02/21/25 11:23 Patient Tobacco Use Status Current everyday Tobacco 02/21/25 11:17 e-Cigarette/Vaping Use Currently Using 02/21/25 11:17 PHQ-9: PHQ-9 Score PHQ-9: Total score 13 02/21/25 11:30 Depression Screening Interpretation: Positive Depression Screening Follow-up: Existing condition Thrive Assessment: Date of Thrive Assessment Date Thrive assessed 01/23/25 02/21/25 11:17 Currently or been in a relationship where the following occur: No concerns reported Coding Level of Care Code Est Pt Level 4 (47995) Complex EM visit Add On G2211 Diagnoses PUD (peptic ulcer disease) K27.9 Anxiety F41.9 Additional Codes RYAN-7 Assessment Billing - RYAN-7 Assessment Tool: RYAN-7 Assessment 23087 ([id number]) PHQ-9 - 77973 - PHQ-9 Billing: Yes ([id number]) Assessment & Plan Assessment & Plan (1) PUD (peptic ulcer disease): Code(s): K27.9 - Peptic ulcer, site unspecified, unspecified as acute or chronic, without hemorrhage or perforation Category: Medical (2) Anxiety: Code(s): F41.9 - Anxiety disorder, unspecified Category: Medical Plan The patient is a 34 year old female presenting for follow up ED visits reviewed Dl gastritis/PUD. Advised to increase PPI. GI referral placed She is concerned for potential POTs. referral to cardiology placed. Anxiety is stable Orders: Orders Tryptase 02/22/25 R00.2 - Palpitations Referrals Cardiology Referral G90.A - Postural orthostatic tachycardia syndrome [POTS] Gastroenterology Referral K27.9 - Peptic ulcer, site unspecified, unspecified as acute or chronic, without hemorrhage or perforation Medications: Changed From pantoprazole 20 mg PO DAILY 90 tabs 3RF To pantoprazole Take 2 tab oral twice daily for one week then take 1 tab oral twice daily for one week then take one tab oral once daily 40 mg (2 x 20 mg) PO BID 180 tabs 3RF
[2025-02-21 11:20] VITALS: BP 124/82; PULSE 78; RESP 20; TEMP 36.9; O2SAT 98; BMI 38.6
== END 2025-02-21 11:45 | disposition home or self-care (01) ==
LOC: HO.HMCFM 11:05
PROVIDERS: PCP Internal Medicine; Visit Provider Internal Medicine
DX: K27.9 Peptic ulcer, site unspecified, unspecified as acute or chronic, without hemorrhage or perforation (principal); F41.9 Anxiety disorder, unspecified

== ENCOUNTER → 2025-02-21 11:04 | Outpatient (BNVA) | payer OTHER, SELFPAY | PROVIDERS: PCP Internal Medicine; Visit Provider Internal Medicine | DX: K27.9 Peptic ulcer, site unspecified, unspecified as acute or chronic, without hemorrhage or perforation (principal); F41.9 Anxiety disorder, unspecified; G90.A Postural orthostatic tachycardia syndrome [POTS]; Z13.31 Encounter for screening for depression; Z13.39 Encounter for screening examination for other mental health and behavioral disorders | CPT/HCPCS: 96127 ==

== ENCOUNTER 2025-02-22 08:45 | Outpatient (REF) | payer OTHER, SELFPAY ==
--- OUTSIDE RECORDS SUMMARY | 2025-02-22 09:22 | XMS_ITS | Clinical Summary ---
Author Organization [facility] Address [address] [facility] [address] [place] [address] Phone Care Team Providers Care Syrup Mixer Helper Name Role Phone Belinda Villa MD Primary Care Provider Allergies No known active allergies Encounters Date Type Department Care Team Description 02/13/2025 10:56 AM EDT - 02/13/2025 11:59 PM EDT Hospital Encounter [address] [address] Alem Wong PA-C Discharge Disposition: Home or Self Care 02/12/2025 8:25 PM EDT Ancillary Procedure [address] [address] Alem Wong PA-C 02/12/2025 6:58 PM EDT - 02/12/2025 9:10 PM EDT Emergency [facility] [address] [place] [id number] Discharge Disposition: Home or Self Care from [...] indeterminate Images: Images Saved: Yes Accession Number: [id number] us Alem Wong PA-C IMG POINT OF CARE EXAMS Fin al Result * Troponin (02/12/2025 7:35 PM EDT) Only the most recent of2 resultswithin the time period is included. Troponin-T, HS Gen5 <6 0 - 9 ng/L [facility] Blood 02/12/2025 7:35 PM EDT 02/12/2025 7:39 PM EDT Prabhu Soria MD LAB BLOOD ORDERABLES Fin al Result [address] [address] * XR CHEST PA AND LATERAL 2 VIEWS (02/12/2025 7:06 PM EDT) Anatomical Region Laterality Modality Chest Computed Radiogr aphy 02/12/2025 7:08 PM EDT Impressions 02/12/2025 7:12 PM EDT No acute abnormality. ATTESTATION: I, Marci Powell [...] ALKALINE PHOSPHATASE 83 39 - 117 U/L [facility] TOTAL BILIRUBIN 0.8 0.0 - 1.2 mg/dL [facility] DIRECT BILIRUBIN 0.2 0.0 - 0.2 mg/dL [facility] Bilirubin (Indirect) 0.6 0 - 1.5 mg/dL [facility] AST 13 0 - 37 U/L [facility] ALT 17 0 - 40 U/L [facility] TOTAL PROTEIN 7.1 6.5 - 8.0 g/dL [facility] ALBUMIN 4.3 3.9 - 4.8 g/dL [facility] GLOBULIN 2.8 1 - 4.8 g/dL [facility] A/G Ratio 1.54 1.00 - 4.80 RATIO [facility] 02/12/2025 6:36 PM EDT 02/12/2025 6:40 PM EDT us Prabhu Soria MD LAB BLOOD ORDERABLES Fin al Result [address] [address] * CBC and differential (02/12/2025 6:36 PM EDT) WBC 8.74 4.00 - 11.00 K/uL [facility] RBC 4.24 4.00 - 5.20 M/uL [facility] HGB 13.0 12.0 - 16.0 g/dL [facility] HCT 37.3 36.0 - 46.0 % [facility] PLT 267 150 - 450 K/uL [facility] MCV 88.0 80.0 - 100.0 fL [facility] MCH 30.7 27.0 - 31.0 pg [facility] MCHC 34.9 32.0 - 36.0 g/dL [facility] RDW 12.7 11.5 - 14.5 % [facility] MPV 9.0 8.4 - 12.0 fL [facility] NRBC 0.00 0.00 /100 WBCs [facility] ABSOLUTE NRBC 0.00 0.00 K/uL [facility] DIFF METHOD Auto [facility] NEUTS 69.1 48.0 - 76.0 % [facility] LYMPHS 24.5 18.0 - 41.0 % [facility] MONOS 4.6 4.0 - 11.0 % [facility] EOS 1.0 0.0 - 5.0 % [facility] BASOS 0.6 0.0 - 1.5 % [facility] Granulocytes, immature (%) 0.2 0.0 - 0.9 % [facility] ABSOLUTE NEUTS 6.04 1.92 - 7.60 K/uL [facility] ABSOLUTE LYMPHS 2.14 0.72 - 4.10 K/uL [facility] ABSOLUTE MONOS 0.40 0.16 - 1.10 K/uL [facility] ABSOLUTE EOS 0.09 0.00 - 0.50 K/uL [facility] ABSOLUTE BASOS 0.05 0.00 - 0.15 K/uL [facility] Granulocytes, immature 0.02 0.00 - 0.09 K/uL [facility] Blood 02/12/2025 6:36 PM EDT 02/12/2025 6:40 PM EDT Prabhu Soria MD LAB BLOOD ORDERABLES Fin al Result Performing Organization Address [facility]/ZIP Co de Phone Number [address] [address] * Lipase (02/12/2025 6:36 PM EDT) LIPASE 44 16 - 63 U/L [facility] 02/12/2025 6:36 PM EDT 02/12/2025 6:40 PM EDT Prabhu Soria MD LAB BLOOD ORDERABLES Fin al Result Performing Organization Address [facility] Co de Phone Number [address] [address] * Basic metabolic panel (02/12/2025 6:36 PM EDT) SODIUM 141 133 - 146 mmol/L [facility] CHLORIDE 107 96 - 108 mmol/L [facility] POTASSIUM 3.4 3.3 - 5.1 mmol/L [facility] CO2 23 21 - 35 mmol/L [facility] BUN 10 6 - 19 mg/dL [facility] CREATININE 0.70 0.5 - 1.5 mg/dL [facility] GLUCOSE 78 70 - 99 mg/dL [facility] CALCIUM 9.4 8.4 - 10.3 mg/dL [facility] EGFR 118 >59 mL/min/1.7 3m2 [facility] Comment:Estimated glomerular filtration rate calculated using the CKD-EPI refit equation. ANION GAP 14 10 - 20 mmol/L [facility] Blood 02/12/2025 6:36 PM EDT 02/12/2025 6:40 PM EDT us Prabhu Soria MD LAB BLOOD ORDERABLES Fin al Result Performing Organization Address City/[facility]/ZIP Co de Phone Number [address] [address] * COVID Pandemic Respiratory Viral Order (PRO) (02/12/2025 6:32 PM EDT) Test Ordered Rapid COVID has been ordered [facility] Specimen Source/Descri ption NASAL [facility] SARS-CoV 2 (COVID-19) PCR Not Detected Not Detected [facility] Other (Nasopharyngeal swab) 02/12/2025 6:32 PM EDT 02/12/2025 6:39 PM EDT us Prabhu Soria MD BODY FLUIDS AND STOOLS O RDERABLES Final Result Performing Organization Address [facility] Co de Phone Number [address] [address] * ECG 12-LEAD (02/12/2025 6:27 PM EDT) Ventricular Rate EKG/MIN 67 BPM [facility] Atrial Rate 67 BPM [facility] [place] Interval 156 ms [facility] QRS Duration 94 ms [facility] QT Interval 392 ms [facility] QTC Interval 414 ms [facility] P [place] 46 degrees [facility] R Wave [place] 53 degrees [facility] T Wave [place] 38 degrees [facility] 02/12/2025 6:27 PM EDT 02/13/2025 7:44 AM EDT Narrative [facility] - 02/13/2025 7:44 AM EDT Sinus rhythm with marked sinus arrhythmia Otherwise normal ECG No previous ECGs available Confirmed by Cristiano Forde ([id number]) on 02/13/2025 7:44:41 AM us Prabhu Soria MD ECG ORDERABLES Final Re sult [facility] Organization Address City/State/ZIP Co de Phone Number [facility] from Last 3 Months Additional Health Concerns Infection Onset Date Last Indicated CoV-Risk 02/12/2025 02/12/2025 Insurance O POS [place] [address] [place] [address]O [place] [address] [place] [id number] [place] [address] [address] POS EPO [facility] [place] [address] POS EPO Care Teams Syrup Mixer Helper Relationship Specialty Start Date End Date Belinda Villa MD [address] [place] [address] [place] [address] PCP - General Internal Medicine 02/12/25 Additional Source Comments The information contained in this document represents components of the legal health record. It is not the complete legal health record.[facility]
== END 2025-02-22 08:46 | disposition home or self-care (01) ==
LOC: HO.WFDLDS 08:45
PROVIDERS: Visit Provider Internal Medicine
DX: R00.2 Palpitations (principal)
CPT/HCPCS: 36415; 83520

== ENCOUNTER 2025-03-24 09:16 | Outpatient (REF) | payer OTHER, SELFPAY ==
--- NOTE | ~2025-03-24 | XR_ITS ---
EXAMINATION: XR WRIST, LEFT CLINICAL INFORMATION: M25.532 - Pain in left wrist COMPARISON: None available. TECHNIQUE: PA, lateral, and oblique views of the left wrist. Scaphoid projection. FINDINGS: Scaphoid is intact. The carpal bones are intact. There is normal alignment. No subcutaneous emphysema. No lytic or blastic lesions. No metallic or radiopaque foreign body. XR/XR wrist LT w scaphoid IMPRESSION: No acute fracture or dislocation. Electronically signed by: López Robin MD 03/24/2025 02:42 PM ALEX DE
--- OUTSIDE RECORDS SUMMARY | 2025-03-27 10:21 | XMS_ITS | Clinical Summary ---
Author Organization [facility]ly [facility] Address [address] [place] [id number] Phone Care Team Providers Care Oil Lease Buyer Name Role Phone Belinda Villa MD Primary Care Provider Allergies No known active allergies Encounters Date Type Department Care Team Description 02/13/2025 10:56 AM EDT - 02/13/2025 11:59 PM EDT Hospital Encounter [address] [address] Alem Wong PA-C Discharge Disposition: Home or Self Care 02/12/2025 8:25 PM EDT Ancillary Procedure [address] [address] Alem Wong PA-C 02/12/2025 6:58 PM EDT - 02/12/2025 9:10 PM EDT Emergency [facility] [address] [place] [id number] Discharge Disposition: Home or Self Care from [...] indeterminate Images: Images Saved: Yes Accession Number: [id number] us Alem Wong PA-C IMG POINT OF CARE EXAMS Fin al Result * Troponin (02/12/2025 7:35 PM EDT) Only the most recent of2 resultswithin the time period is included. Troponin-T, HS Gen5 <6 0 - 9 ng/L [facility] Blood 02/12/2025 7:35 PM EDT 02/12/2025 7:39 PM EDT us Prabhu Soria MD LAB BLOOD BKR ORDERABLES Final Result [address] [address] * XR CHEST PA AND LATERAL 2 [...] ALKALINE PHOSPHATASE 83 39 - 117 U/L [facility] TOTAL BILIRUBIN 0.8 0.0 - 1.2 mg/dL [facility] DIRECT BILIRUBIN 0.2 0.0 - 0.2 mg/dL [facility] Bilirubin (Indirect) 0.6 0 - 1.5 mg/dL [facility] AST 13 0 - 37 U/L [facility] ALT 17 0 - 40 U/L [facility] TOTAL PROTEIN 7.1 6.5 - 8.0 g/dL [facility] ALBUMIN 4.3 3.9 - 4.8 g/dL [facility] GLOBULIN 2.8 1 - 4.8 g/dL [facility] A/G Ratio 1.54 1.00 - 4.80 RATIO [facility] 02/12/2025 6:36 PM EDT 02/12/2025 6:40 PM EDT us Prabhu Soria MD LAB BLOOD BKR ORDERABLES Final Result Performing Organization Address City/State/[facility] Co de Phone Number [facility] [address] [place] [address] * CBC and differential (02/12/2025 6:36 PM EDT) WBC 8.74 4.00 - 11.00 K/uL [facility] RBC 4.24 4.00 - 5.20 M/uL [facility] HGB 13.0 12.0 - 16.0 g/dL [facility] HCT 37.3 36.0 - 46.0 % [facility] PLT 267 150 - 450 K/uL [facility] MCV 88.0 80.0 - 100.0 fL [facility] MCH 30.7 27.0 - 31.0 pg [facility] MCHC 34.9 32.0 - 36.0 g/dL [facility] RDW 12.7 11.5 - 14.5 % [facility] MPV 9.0 8.4 - 12.0 fL [facility] NRBC 0.00 0.00 /100 WBCs [facility] ABSOLUTE NRBC 0.00 0.00 K/uL [facility] DIFF METHOD Auto [facility] NEUTS 69.1 48.0 - 76.0 % [facility] LYMPHS 24.5 18.0 - 41.0 % [facility] MONOS 4.6 4.0 - 11.0 % [facility] EOS 1.0 0.0 - 5.0 % [facility] BASOS 0.6 0.0 - 1.5 % [facility] Granulocytes, immature (%) 0.2 0.0 - 0.9 % [facility] ABSOLUTE NEUTS 6.04 1.92 - 7.60 K/uL [facility] ABSOLUTE LYMPHS 2.14 0.72 - 4.10 K/uL [facility] ABSOLUTE MONOS 0.40 0.16 - 1.10 K/uL [facility] ABSOLUTE EOS 0.09 0.00 - 0.50 K/uL [facility] ABSOLUTE BASOS 0.05 0.00 - 0.15 K/uL [facility] Granulocytes, immature 0.02 0.00 - 0.09 K/uL [facility] Blood 02/12/2025 6:36 PM EDT 02/12/2025 6:40 PM EDT Prabhu Soria MD LAB BLOOD BKR ORDERABLES Final Result Performing Organization Address City/[facility]/ZIP Co de Phone Number [address] [address] * Lipase (02/12/2025 6:36 PM EDT) LIPASE 44 16 - 63 U/L [facility] 02/12/2025 6:36 PM EDT 02/12/2025 6:40 PM EDT Prabhu Soria MD LAB BLOOD BKR ORDERABLES Final Result Performing Organization Address [facility] Co de Phone Number [address] [address] * Basic metabolic panel (02/12/2025 6:36 PM EDT) SODIUM 141 133 - 146 mmol/L [facility] CHLORIDE 107 96 - 108 mmol/L [facility] POTASSIUM 3.4 3.3 - 5.1 mmol/L [facility] CO2 23 21 - 35 mmol/L [facility] BUN 10 6 - 19 mg/dL [facility] CREATININE 0.70 0.5 - 1.5 mg/dL [facility] GLUCOSE 78 70 - 99 mg/dL [facility] CALCIUM 9.4 8.4 - 10.3 mg/dL [facility] EGFR 118 >59 mL/min/1.7 3m2 [facility] Comment:Estimated glomerular filtration rate calculated using the CKD-EPI refit equation. ANION GAP 14 10 - 20 mmol/L [facility] Blood 02/12/2025 6:36 PM EDT 02/12/2025 6:40 PM EDT us Prabhu Soria MD LAB BLOOD BKR ORDERABLES Final Result Performing Organization Address City/[facility]/ZIP Co de Phone Number [address] [phone] * COVID Pandemic Respiratory Viral Order (PRO) (02/12/2025 6:32 PM EDT) Test Ordered Rapid COVID has been ordered [facility] Specimen Source/Descri ption NASAL [facility] SARS-CoV 2 (COVID-19) PCR Not Detected Not Detected [facility] Other (Nasopharyngeal swab) 02/12/2025 6:32 PM EDT 02/12/2025 6:39 PM EDT us Prabhu Soria MD LAB GENERAL ORDERABLES F inal Result Performing Organization Address City/[facility] Co de Phone Number [address] [address] * ECG 12-LEAD (02/12/2025 6:27 PM EDT) Ventricular Rate EKG/MIN 67 BPM [facility] Atrial Rate 67 BPM [facility] NE Interval 156 ms [facility] QRS Duration 94 ms [facility] QT Interval 392 ms [facility] QTC Interval 414 ms [facility] P Isabella 46 degrees [facility] R Wave Isabella 53 degrees [facility] T Wave Isabella 38 degrees [facility] 02/12/2025 6:27 PM EDT 02/13/2025 7:44 AM EDT Narrative [facility] - 02/13/2025 7:44 AM EDT Sinus rhythm with marked sinus arrhythmia Otherwise normal ECG No previous ECGs available Confirmed by Cristiano Forde ([id number]) on 02/13/2025 7:44:41 AM us Prabhu Soria MD ECG ORDERABLES [facility] Organization Address City/State/ZIP Co de Phone Number [facility] from Last 3 Months Insurance O [facility] [place] [address] [place] [address] [address] [place], [place] [address]O [facility] Care Teams Oil Lease Buyer Relationship Specialty Start Date End Date Belinda Villa MD [address] [place] [address] PCP - General Internal Medicine 02/12/25 Additional Source Comments The information contained in this document represents components of the legal health record. It is not the complete legal health record.[facility]
== END 2025-03-24 09:17 | disposition home or self-care (01) ==
LOC: HO.HOSX 09:16
DX: M67.432 Ganglion, left wrist (principal)
CPT/HCPCS: 73110

== ENCOUNTER 2025-03-24 14:30 | Outpatient (AMB) | payer OTHER, SELFPAY ==
--- NOTE | 2025-03-24 14:37 | A.OFFVIS_ITS ---
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 Patient reports pain began about 6 months ago, she is unsure on what happened. She states there is a bump on the dorsal aspect of the left wrist that has decreased in size since. She is no longer taking anything for pain. She reports associated tingling without numbness. She denies any trigger fingers. She denies any previous injuries or surgeries to the left wrist. Patient states she had an EMG done over 3 years ago and was diagnosed with Left Carpal Tunnel Syndrome. Patient shares she is willing to repeat the EMG if needed to however she does not want any cervical testing as she had a seizure during her last EMG and does not wish to go through this again. 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 Patient reports pain began about 6 months ago, she is unsure on what happened. She states there is a bump on the dorsal aspect of the left wrist that has decreased in size since. She is no longer taking anything for pain. She reports associated tingling without numbness. She denies any trigger fingers. She denies any previous injuries or surgeries to the left wrist. Patient states she had an EMG done over 3 years ago and was diagnosed with Left Carpal Tunnel Syndrome. Patient shares she is willing to repeat the EMG if needed to however she does not want any cervical testing as she had a seizure during her last EMG and does not wish to go through this again. Patient states that there is some discomfort to palpation around the mass of the left wrist. 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 Neuro: Normal sensation of the tips of all digits of the left hand at this time Vascular: Cap refill brisk Pain: Tenderness to palpation about mass on dorsal left wrist No pain with range of motion of the left hand or wrist ROM: Patient is able to make a closed fist and extend all digits of the left hand fully and without difficulty Range of motion of the left wrist full and intact Skin: No lacerations or abrasions. General: There was an approximately 1 cm in diameter mass noted on the dorsal aspect of the left wrist, more prominent with wrist flexion No ecchymosis, erythema, or evidence of infection. Psych: Appears grossly normal Affect normal Attitude cooperative Results Reviewed Results Reviewed: X-rays obtained in the office today and independently reviewed by me, Bernabe Glover PA-C, demonstrate no fracture or bony abnormality of the left wrist. Assessment & Plan Assessment & Plan (1) Ganglion cyst of dorsum of left wrist: Code(s): M67.432 - Ganglion, left wrist Category: Medical Plan 1. Dorsal left ganglion cyst of the wrist Patient is educated about this condition Patient is educated about the typical treatment course At this time, patient would like to proceed with gentle compression to see if this will continue to shrink the cyst without the need for further invasive intervention Patient is educated that we can perform aspiration or surgical excision of the cyst if compression proves ineffective Patient understands this and is amenable to this plan Follow-up as needed Orders: Orders XR wrist LT w scaphoid Today M25.532 - Pain in left wrist Coding Level of Care Code New Pt Level 3 (55212) Diagnoses Ganglion cyst of dorsum of left wrist M67.432
[2025-03-24 14:44] VITALS: BMI 38.6
--- OUTSIDE RECORDS SUMMARY | 2025-03-24 14:50 | XMS_ITS | Clinical Summary ---
Author Organization [facility] Address [address] [facility] [address] [place] [address] Phone Care Team Providers Care Transport Rn Name Role Phone Belinda Villa MD Primary Care Provider Allergies No known active allergies Encounters Date Type Department Care Team Description 02/13/2025 10:56 AM EDT - 02/13/2025 11:59 PM EDT Hospital Encounter [address] [address] Alem Wong PA-C Discharge Disposition: Home or Self Care 02/12/2025 8:25 PM EDT Ancillary Procedure [address] [address] Alem Wong PA-C 02/12/2025 6:58 PM EDT - 02/12/2025 9:10 PM EDT Emergency [facility] Emergency [address] [place] [address] Discharge Disposition: Home or Self Care from [...] 02/12/2025 6:36 PM EDT BASIC METABOLIC PANEL (BMP) STAT 02/12/2025 6:36 PM EDT CBC AND [...] indeterminate Images: Images Saved: Yes Accession Number: [id number] us Alem Wong PA-C IMG POINT OF CARE EXAMS Fin al Result * Troponin (02/12/2025 7:35 PM EDT) Only the most recent of2 resultswithin the time period is included. Troponin-T, HS Gen5 <6 0 - 9 ng/L [facility] Blood 02/12/2025 7:35 PM EDT 02/12/2025 7:39 PM EDT us Prabhu Soria MD LAB BLOOD BKR ORDERABLES Final Result [address] [address] * XR CHEST PA AND LATERAL 2 [...] the report originallycreated by Gregoria Arango MD. Prabhu Soria MD IMG XR CHEST Final Re sult * LFTs (hepatic panel) (02/12/2025 6:36 PM EDT) ALKALINE PHOSPHATASE 83 39 - 117 U/L [facility] TOTAL BILIRUBIN 0.8 0.0 - 1.2 mg/dL [facility] DIRECT BILIRUBIN 0.2 0.0 - 0.2 mg/dL [facility] Bilirubin (Indirect) 0.6 0 - 1.5 mg/dL [facility] AST 13 0 - 37 U/L [facility] ALT 17 0 - 40 U/L [facility] TOTAL PROTEIN 7.1 6.5 - 8.0 g/dL [facility] ALBUMIN 4.3 3.9 - 4.8 g/dL [facility] GLOBULIN 2.8 1 - 4.8 g/dL [facility] A/G Ratio 1.54 1.00 - 4.80 RATIO [facility] 02/12/2025 6:36 PM EDT 02/12/2025 6:40 PM EDT us Prabhu Soria MD LAB BLOOD BKR ORDERABLES Final Result Performing Organization Address City/State/[facility] Co de Phone Number [facility] [address] [place] [address] * CBC and differential (02/12/2025 6:36 PM EDT) WBC 8.74 4.00 - 11.00 K/uL [facility] RBC 4.24 4.00 - 5.20 M/uL [facility] HGB 13.0 12.0 - 16.0 g/dL [facility] HCT 37.3 36.0 - 46.0 % [facility] PLT 267 150 - 450 K/uL [facility] MCV 88.0 80.0 - 100.0 fL [facility] MCH 30.7 27.0 - 31.0 pg [facility] MCHC 34.9 32.0 - 36.0 g/dL [facility] RDW 12.7 11.5 - 14.5 % [facility] MPV 9.0 8.4 - 12.0 fL [facility] NRBC 0.00 0.00 /100 WBCs [facility] ABSOLUTE NRBC 0.00 0.00 K/uL [facility] DIFF METHOD Auto [facility] NEUTS 69.1 48.0 - 76.0 % [facility] LYMPHS 24.5 18.0 - 41.0 % [facility] MONOS 4.6 4.0 - 11.0 % [facility] EOS 1.0 0.0 - 5.0 % [facility] BASOS 0.6 0.0 - 1.5 % [facility] Granulocytes, immature (%) 0.2 0.0 - 0.9 % [facility] ABSOLUTE NEUTS 6.04 1.92 - 7.60 K/uL [facility] ABSOLUTE LYMPHS 2.14 0.72 - 4.10 K/uL [facility] ABSOLUTE MONOS 0.40 0.16 - 1.10 K/uL [facility] ABSOLUTE EOS 0.09 0.00 - 0.50 K/uL [facility] ABSOLUTE BASOS 0.05 0.00 - 0.15 K/uL [facility] Granulocytes, immature 0.02 0.00 - 0.09 K/uL [facility] Blood 02/12/2025 6:36 PM EDT 02/12/2025 6:40 PM EDT Prabhu Soria MD LAB BLOOD BKR ORDERABLES Final Result Performing Organization Address City/[facility]/ZIP Co de Phone Number [address] [address] * Lipase (02/12/2025 6:36 PM EDT) LIPASE 44 16 - 63 U/L [facility] 02/12/2025 6:36 PM EDT 02/12/2025 6:40 PM EDT Prabhu Soria MD LAB BLOOD BKR ORDERABLES Final Result Performing Organization Address [facility] Co de Phone Number [address] [address] * Basic metabolic panel (02/12/2025 6:36 PM EDT) SODIUM 141 133 - 146 mmol/L [facility] CHLORIDE 107 96 - 108 mmol/L [facility] POTASSIUM 3.4 3.3 - 5.1 mmol/L [facility] CO2 23 21 - 35 mmol/L [facility] BUN 10 6 - 19 mg/dL [facility] CREATININE 0.70 0.5 - 1.5 mg/dL [facility] GLUCOSE 78 70 - 99 mg/dL [facility] CALCIUM 9.4 8.4 - 10.3 mg/dL [facility] EGFR 118 >59 mL/min/1.7 3m2 [facility] Comment:Estimated glomerular filtration rate calculated using the CKD-EPI refit equation. ANION GAP 14 10 - 20 mmol/L [facility] Blood 02/12/2025 6:36 PM EDT 02/12/2025 6:40 PM EDT us Prabhu Soria MD LAB BLOOD BKR ORDERABLES Final Result Performing Organization Address City/[facility]/ZIP Co de Phone Number [address] [address] * COVID Pandemic Respiratory Viral Order (PRO) (02/12/2025 6:32 PM EDT) Test Ordered Rapid COVID has been ordered [facility] Specimen Source/Descri ption NASAL [facility] SARS-CoV 2 (COVID-19) PCR Not Detected Not Detected [facility] Other (Nasopharyngeal swab) 02/12/2025 6:32 PM EDT 02/12/2025 6:39 PM EDT us Prabhu Soria MD LAB GENERAL ORDERABLES F inal Result Performing Organization Address City/[facility] Co de Phone Number [address] [address] * ECG 12-LEAD (02/12/2025 6:27 PM EDT) Ventricular Rate EKG/MIN 67 BPM [facility] Atrial Rate 67 BPM [facility] [place] Interval 156 ms [facility] QRS Duration 94 ms [facility] QT Interval 392 ms [facility] QTC Interval 414 ms [facility] P [place] 46 degrees [facility] R Wave [place] 53 degrees [facility] T Wave [place] 38 degrees [facility] 02/12/2025 6:27 PM EDT 02/13/2025 7:44 AM EDT Narrative [facility] - 02/13/2025 7:44 AM EDT Sinus rhythm with marked sinus arrhythmia Otherwise normal ECG No previous ECGs available Confirmed by Cristiano Forde ([id number]) on 02/13/2025 7:44:41 AM us Prabhu Soria MD ECG ORDERABLES [facility] Organization Address City/State/ZIP Co de Phone Number [facility] from Last 3 Months Insurance O POS EPO [facility] [place] [address] [place] [id number]PO [address] [place] [id number] [facility] Care Teams Transport Rn Relationship Specialty Start Date End Date Belinda Villa MD [address] [place] [address] PCP - General Internal Medicine 02/12/25 Additional Source Comments The information contained in this document represents components of the legal health record. It is not the complete legal health record.[facility]
== END 2025-03-24 14:56 | disposition home or self-care (01) ==
LOC: HO.HOS 14:30
PROVIDERS: PCP Internal Medicine
DX: M67.432 Ganglion, left wrist (principal)
CPT/HCPCS: 99203

== ENCOUNTER → 2025-03-24 14:32 | Outpatient (BNV) | payer OTHER, SELFPAY | PROVIDERS: Visit Provider Radiology Diagnostic Radiology | DX: M25.532 Pain in left wrist (principal) | CPT/HCPCS: 73110 ==